=== PATIENT | female | born 1960 | race Caucasian/White ===

== ENCOUNTER → 2018-06-19 | Outpatient (CLI) | payer BC ==
[~2018-06-19] MED LIST: BIOT1CHW PO; CLR10 PO; FLAX1CAP11 PO; LEVO137T3 PO; LISI40TA PO; MULT1CAP3 PO
--- NOTE | 2018-06-20 07:56 | MAMMOGRAPHY REPORT ---
BILATERAL DIGITAL SCREENING MAMMOGRAM TOMOSYNTHESIS WITH CAD: 06/19/2018 CLINICAL HISTORY: Routine screening. Patient has no complaints. TECHNIQUE: The study was acquired using full field digital technology and interpreted from soft copy. Breast tomosynthesis in addition to standard 2D mammography was performed. Current study was also ev aluated with a Computer Aided Detection (CAD) system. COMPARISON: Comparison is made to exams dated: 06/22/2014 mammogram, 12/15/2013 mammogram, 06/18/2013 u ltrasound, 06/18/2013 mammogram, 06/09/2013 mammogram, and 12/15/2013 ultrasound - [facility]. BREAST COMPOSITION: There are scattered areas of fibroglandular density in both breasts. FINDINGS: No suspicious masses, calcifications, or areas of architectural distortion are noted in either breast . There has been no significant interval change compared to prior exams. IMPRESSION: ACR BI-RADS CATEGORY 1: NEGATIVE There is no mammographic evidence of malignancy. A 1 year screening mammogram is recommended.( 019) The patient will receive written notification of the results. Some breast cancers are not detected with mammography. A negative mammographic report should not rajat y biopsy if a clinically suggestive mass is present. Chelita Prince M.D. ah/:06/19/2018 12:38:19 Mobile Lounge Driver Or Operator: RT Tye(Mundo)(M), [facility] letter sent: Normal 1/2 BI-RADS Code: ACR BI-RADS Category 1: Negative
== END | disposition home or self-care (01) ==
LOC: C.MAMM 10:45
PROVIDERS: ATTEND Nurse Practitioner Family
DX: Z12.31 Encounter for screening mammogram for malignant neoplasm of breast (principal)

== ENCOUNTER 2019-08-09 13:07 | Observation (INO) ==
[2019-08-09] MEDS ORDERED: ONDANSETRON INJ 2 MG/ML 2 ML VIAL IV STA (13:43)
[2019-08-09] MEDS ORDERED: ASPIRIN CHEW 324 MG PO STA (13:43)
[2019-08-09] MEDS ORDERED: SODIUM CHLORIDE 0.9% 1000ML 1,000 ML IV SCH (13:45)
[2019-08-09 14:06] LABS: Basophils # (auto) 0.01 K/uL (0-0.2); Basophils % (auto) 0.2 %; Eosinophils # (auto) 0.01 K/uL (0-0.5); Eosinophils % (auto) 0.2 %; Hematocrit (blood only) 40.6 % (37-47); Hemoglobin 14.1 g/dL (12.0-16.0); Immature Granulocytes # (auto) 0.01 K/uL (0.00-0.02); Immature Granulocytes % (auto) 0.2 %; Lymphocytes # (auto) 0.98 K/uL (1.2-3.4); Lymphocytes % (auto) 15.5 %; Mean Corpuscular Hemoglobin 29.6 pg (25-34); Mean Corpuscular Hgb Conc 34.7 g/dL (32-36); Mean Corpuscular Volume 85.1 fL (80-100); Mean Platelet Volume 9.8 fL (7.4-10.4); Monocytes # (auto) 0.52 K/uL (0.11-0.59); Monocytes % (auto) 8.2 %; Neutrophils # (auto) 4.79 K/uL (1.4-6.5); Neutrophils % (auto) 75.7 %; Platelet Count 238 K/uL (130-400); RDW Coefficient of Variation 12.3 % (11.5-14.5); RDW Standard Deviation 37.8 fL (36.4-46.3); Red Blood Count 4.77 M/uL (4.2-5.4); White Blood Count 6.32 K/uL (4.8-10.8)
[2019-08-09 14:18] LABS: D Dimer 210 ug/L FEU (0-500); Partial Thromboplastin Ratio 1.1; Partial Thromboplastin Time 30.6 Seconds (21.0-31.0); Prothrombin Time 10.7 Seconds (9.0-12.0)
--- NOTE | 2019-08-09 14:25 | XRay Report ---
XR chest 1V portable CLINICAL HISTORY: 58 years-old Female presenting with Chest Pain. TECHNIQUE: Portable upright AP view of the chest was obtained. COMPARISON: None. FINDINGS: Top normal size of the cardiac silhouette. No focal opacity. No large effusion or pneumothorax. Degen erative changes of the thoracic spine. Upper abdomen normal. IMPRESSION: 1. No acute cardiopulmonary disease. Electronically signed by: Michael Saini M.D. 08/09/2019 2:24 PM
[2019-08-09 14:28] LABS: BUN Creatinine Ratio 11.7 (10-20); Blood Urea Nitrogen 12 mg/dl (7-18); Calcium 8.9 mg/dl (8.5-10.1); Carbon Dioxide 27 mmol/L (21-32); Chloride 96 mmol/L (98-107); Creatinine Clr Calc Pharmacy 65.7 ml/min; Est GFR (Non-African American) 58.7; Glucose 164 mg/dl (70-99); Lipase 100 U/L (73-393); Potassium 3.5 mmol/L (3.5-5.1); Sodium 133 mmol/L (136-145)
[2019-08-09 14:32] LABS: Troponin I < 0.015 ng/ml (0-0.045)
--- NOTE | 2019-08-09 17:18 | History & Physical Report ---
Date of Service August 09, 2019 Assessment & Plan (1) Chest pain: ED at OSH with neg workup No help with GI proph Trop neg x1, serials pending EKG WNL VSS Lipase is WNL, other LFTs not done--pending, t/c GB US if elevated Sx are more of a syndrome, lyme pending Low probablity of PE given VSS and no known risk factors, if sudden change in VS or SOB at rest or increase in chest pain--low threshold for CTA CBC, PRP WNL CXR neg for acute (2) HTN (hypertension): Pt states that she saw her PCP on 07/05 and her BP was elevated. Lisinopril was increased from 40mg to 50mg. She had f/u labs done on 08/01 and her K was increased, so the lisinopril was decreased back to 40mg and she was started on HCTZ. continue home meds (3) Hyperkalemia: Noted on prior labs per pt, now borderline low with HCTZ use Monitor (4) Hypothyroid: continue home meds (5) DVT prophylaxis: SCDs, ambulation History of Present Illness Primary Care Provider: MARLA Feldman 58 y/o F c/o chest pain. Pt states she has been very tired and weak for about the last week. She developed some SOB with exertion only and had some chest pain that was under her R breast. While they were on vacation in the [facility], pt developed L sided chest pain that went to her UE. She was seen in the ED there on Sunday when this started. She states she had a neg work up there. She was monitored in the ED and had labs done. No stress testing or ECHO. She was d/c'd from the ED to f/u with her PCP. Pt's PCP has been unavailable but she was seen by someone in the office on as her R sided chest pain was continuing "and I just feel shitty. There is no other way I can describe it." She was dx with a gastric issue and started on ranitidine, peptobismol, and BRAT diet. This has been no help. Today she notes R sided chest pain that is more under her breast. She continues to fatigued and weak. She has SOB with exertion, not at rest. She has had intermittent nausea, no emesis. She has loose stools with all PO intake. 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 Since this started, she has been mostly in the chair or in bed. Pt is outdoors a lot in her garden and around her home. They have 2 outdoor/indoor cats that are frequently noted with ticks. She denies any known bites or rashes. Pt states that she saw her PCP on 07/05 and her BP was elevated. Lisinopril was increased from 40mg to 50mg. She had f/u labs done on 08/01 and her K was increased, so the lisinopril was decreased back to 40mg and she was started on HCTZ. While sick, pt has been eating mostly bananas and oatmeal and continues to have loose stools. She has not had much of fatty or greasy/fried foods. Allergies Allergy/AdvReac Type Severity Reaction Status Date / Time No Known Allergies Allergy Mild Unverified 08/09/19 13:52 Home Medications Home Medications Medication Instructions Recorded Confirmed Type levothyroxine 137 mcg PO DAILY 90 Days #90 tab 05/06/16 08/09/19 History lisinopril 40 mg PO DAILY #0 tab 05/06/16 08/09/19 History loratadine 10 mg PO DAILY PRN #0 tab 05/06/16 08/09/19 History hydrochlorothiazide 25 mg PO DAILY 08/09/19 08/09/19 History ranitidine HCl [Zantac] 150 mg PO DAILY 08/09/19 08/09/19 History Past Med/Surg History Surgical History No pertinent past surgical history Family History Grandfather Myocardial infarction Other No pertinent family history Social History Preferred Language: Maori Feels Safe at Home: Yes Smoking Status: Former smoker Years Smoked: 3 ; Number of Years Since Quit: 35 ; Hx Alcohol Use: Yes (rare) Hx Substance Use: No Review of Systems Review of Systems: Pertinent positives and negatives reviewed in HPI--all others negative Physical Exam Constitutional: WD/WN, vitals as above Eyes: normal visual holly by confrontation and + anicteric sclerae Neck: normal visual inspection and trachea midline Respiratory: normal respiratory effort, lungs clear to auscultation Cardiovascular: Rate/Rhythm: regular rate and regular rhythm Gastrointestinal (Abdomen): Inspection/Auscultation: + abdomen distended Percussion/Palpation: abdomen soft; abdomen nontender Negative Benavidez's Musculoskeletal: Head/Neck/Chest: normocephalic and head atraumatic negative for edema, peripheral pulses intact Skin: no rashes, warm and dry Neurologic: awake; not confused Speech / Cognition: normal speech Psychiatric: A+Ox3, euthymic affect Results & Data Vital Signs (Past 12 Hours) Vital Signs Temp Pulse Resp BP Pulse Ox 08/09/19 15:02 73 19 119/79 08/09/19 14:30 72 14 08/09/19 14:00 73 19 08/09/19 13:40 74 13 08/09/19 13:12 36.6 C 107 H 24 121/80 97 Diagnostic Findings CXR: neg for acute ECG Rhythm: normal sinus Code Status & VTE Plan Code Status Full code VTE Prophylaxis Plan VTE Prophylaxis will be ordered: Yes PG Care Time/CCT Total # of Minutes Spent Total Time Spent with Patient: Total time spent is greater than 50% in coordination of care (as documented) at patient's floor/unit and/or counseling patient: (1) Chest pain Chest pain type: unspecified Qualified Code(s): R07.9 - Chest pain, unspecified
[2019-08-09] MEDS ORDERED: LORATADINE 10 MG TAB PO PRN (17:50)
[2019-08-09] MEDS ORDERED: MAGNESIUM HYDROXIDE SUSP 30 ML UDC PO PRN (17:50)
[2019-08-09] MEDS ORDERED: ACETAMINOPHEN 325 MG TAB PO PRN (17:50)
[2019-08-09] MEDS ORDERED: ONDANSETRON INJ 2 MG/ML 2 ML VIAL IV PRN (17:50)
--- NOTE | 2019-08-09 17:54 | Emergency Department Note ---
Entered by Jennifer Green acting as a scribe for History of Present Illness General Chief complaint: Shortness of Breath/Dyspnea Stated complaint: NAUSEA,SOB,WEAKNESS Time Seen by Provider: 08/09/19 13:38 History of Present Illness The patient is a 58 year old female who presents to the Emergency Room with complaints of shortness of breath that worsened today. She reports that she has been having discomfort in her central chest/epigastric region for several days. Pain is pressure in nature. No radiation of the pain. No shortness of breath. This morning, she felt much weaker than normal and complains of left arm tightness and weakness. She recently returned from a trip to the [facility] earlier this week. While she was in the earlier this week [facility], the patient experienced chest pain had to go to the emergency department in the [facility] where the patient states he did a cardiac work-up on her. The work-up was negative and the patient was discharged home. She is supposed to follow-up with her PCP was not able to as a PCP did not have any availability to see her this week. And reports no recent surgeries. She denies cough, coughing up blood, and vomiting. Home Medications Home Medications Medication Instructions Recorded Confirmed Type levothyroxine 137 mcg PO DAILY 90 Days #90 tab 05/06/16 08/09/19 History lisinopril 40 mg PO DAILY #0 tab 05/06/16 08/09/19 History loratadine 10 mg PO DAILY PRN #0 tab 05/06/16 08/09/19 History hydrochlorothiazide 25 mg PO DAILY 08/09/19 08/09/19 History ranitidine HCl [Zantac] 150 mg PO DAILY 08/09/19 08/09/19 History Allergies Allergy/AdvReac Type Severity Reaction Status Date / Time No Known Allergies Allergy Mild Unverified 08/09/19 13:52 Past Med/Surg History Surgical History No pertinent past surgical history Family History Grandfather Myocardial infarction Other No pertinent family history Social History Preferred Language: Tunisian Feels Safe at Home: Yes Smoking Status: Former smoker Years Smoked: 3 ; Number of Years Since Quit: 35 ; Hx Alcohol Use: Yes (rare) Hx Substance Use: No Review of Systems See HPI for pertinent positives & negatives. and A total of 10 systems reviewed and were otherwise negative Physical Exam Vital Signs Vital Signs - 24 hr 08/09/19 13:12 08/09/19 13:40 08/09/19 14:00 Temperature 36.6 C Temperature Source Oral Sepsis Recent Fever Within 48 Hours No Sepsis New/Unexplained Change in Mental Status No Sepsis Action Taken by Nursing No Action Required Pulse Rate 107 H 74 73 Pulse Rate from SpO2 Sensor Pulse Rhythm Regular Pulse Strength Normal Respiratory Rate 24 13 19 Respiratory Effort / Characteristics Non-Labored Spontaneous Respiratory Depth Normal Respiratory Pattern Regular Blood Pressure 121/80 Blood Pressure Mean 93 Blood Pressure Position Sitting Pulse Oximetry 97 Oxygen Delivery Method Room Air 08/09/19 14:30 08/09/19 14:56 08/09/19 15:02 Temperature Temperature Source Sepsis Recent Fever Within 48 Hours Sepsis New/Unexplained Change in Mental Status Sepsis Action Taken by Nursing Pulse Rate 72 73 Pulse Rate from SpO2 Sensor Pulse Rhythm Pulse Strength Respiratory Rate 14 19 Respiratory Effort / Characteristics Non-Labored Respiratory Depth Normal Respiratory Pattern Regular Blood Pressure 119/79 Blood Pressure Mean 92 Blood Pressure Position Pulse Oximetry Oxygen Delivery Method Room Air 08/09/19 15:30 08/09/19 16:00 08/09/19 16:30 Temperature Temperature Source Sepsis Recent Fever Within 48 Hours Sepsis New/Unexplained Change in Mental Status Sepsis Action Taken by Nursing Pulse Rate 62 57 L 63 Pulse Rate from SpO2 Sensor 63 57 L 63 Pulse Rhythm Pulse Strength Respiratory Rate 14 13 25 H Respiratory Effort / Characteristics Respiratory Depth Respiratory Pattern Blood Pressure 114/81 116/80 120/80 Blood Pressure Mean 92 92 93 Blood Pressure Position Pulse Oximetry 98 97 97 Oxygen Delivery Method 08/09/19 17:00 Temperature Temperature Source Sepsis Recent Fever Within 48 Hours Sepsis New/Unexplained Change in Mental Status Sepsis Action Taken by Nursing Pulse Rate 60 Pulse Rate from SpO2 Sensor 60 Pulse Rhythm Pulse Strength Respiratory Rate 14 Respiratory Effort / Characteristics Respiratory Depth Respiratory Pattern Blood Pressure 123/82 Blood Pressure Mean 95 Blood Pressure Position Pulse Oximetry 97 Oxygen Delivery Method GENERAL: She is oriented to person, place, and time. She appears well-developed and well-nourished. She does not appear distressed. HENT: Exam performed. Head: Normocephalic and atraumatic. Right Ear: External ear normal. No mastoid tenderness. Left Ear: External ear normal. No mastoid tenderness. Mouth/Throat: The oropharynx is clear and moist. No trismus in the jaw. No dental abscesses or uvula swelling. No oropharyngeal exudate or tonsillar abscesses. EYES: Conjunctivae and EOM are normal. Pupils are equal, round, and reactive to light. Right eye exhibits no discharge. Left eye exhibits no discharge. No scleral icterus. NECK: Normal range of motion. Neck supple. No JVD present. No spinous process tenderness present. No carotid bruit present. No rigidity. No tracheal deviation and normal range of motion present. No Brudzinski's sign and no Kernig's sign noted. CV: Normal rate, regular rhythm, normal heart sounds and intact distal pulses. There is no peripheral edema. Palpable radial pulses bue. PULM/CHEST: Effort normal and breath sounds normal. No respiratory distress. No stridor. She has no wheezes. She has no rales. Chest Wall: She exhibits no tenderness. ABD: The abdomen is soft. Bowel sounds are normal. She has no distension. No mass is present. There is no tenderness. There is no rebound, no guarding, no Benavidez's sign and no tenderness at McBurney's point. Rovsig negative MUSC/SKEL: Normal range of motion. There is no peripheral edema, tenderness or deformity. LYMPH: No cervical adenopathy. NEURO: She is alert and oriented to person, place, and time. She has normal strength. No cranial nerve deficit or sensory deficit. Coordination and gait normal. GCS eye subscore is 4. GCS verbal subscore is 5. GCS motor subscore is 6. cerbellar tests wnl. SKIN: Skin is warm and dry. She is not diaphoretic. PSYCH: She has a normal mood and affect. Her behavior is normal. Judgment and thought content normal. Course 1342: Past medical records reviewed. The patient was evaluated in room B07. A complete history and physical exam was performed. 1556: The patients vital signs are stable, and labs and imaging are within normal limits. She reports no chest pain actively. I had a discussion with the patient and her family, where I noted that this was her second trip to ER in last week for chest pain. I offered inpatient observation to further evaluate her symptoms, as opposed to discharging with Deltatroponin and following up with PCP. After discussion with her and her , they both agreed it would be best for her to remain in the hospital for further evaluation. 1610: I spoke to Madhavi Noel, [facility] hospitalist, who agreed to take over care of the patient. Administered Medications Discontinued Medications Aspirin (Aspirin) 324 mg PO NOW STA Stop: 08/09/19 13:44 Last Admin: 08/09/19 14:47 Dose: 324 mg Documented by: [id number] Sodium Chloride (Nss 1000ml) 1,000 mls @ 999 mls/hr IV .Q1H1M JOSE Stop: 08/09/19 14:45 Last Infusion: 08/09/19 17:35 Dose: 0 mls/hr Documented by: [id number] Admin: 08/09/19 15:07 Dose: 999 mls/hr Documented by: [id number] Ondansetron HCl (Zofran) 4 mg IV NOW STA Stop: 08/09/19 13:44 Last Admin: 08/09/19 14:48 Dose: 4 mg Documented by: [id number] Medical Decision Making Medical Records Attestation: I reviewed the patient's medical records. Home Medications Current Medication List: was personally reviewed by me Laboratory Data Attestation: I reviewed the patient's lab results. Result diagrams: 08/09/19 13:55 08/09/19 13:55 Lab Results 08/09/19 08/09/19 08/09/19 Range/Units 13:55 13:55 13:55 WBC 6.32 (4.8-10.8) K/uL RBC 4.77 (4.2-5.4) M/uL Hgb 14.1 (12.0-16.0) g/dL Hct 40.6 (37-47) % MCV 85.1 (80-100) fL MCH 29.6 (25-34) pg MCHC 34.7 (32-36) g/dL RDW Std Deviation 37.8 (36.4-46.3) fL RDW Coeff of Mervin 12.3 (11.5-14.5) % Plt Count 238 (130-400) K/uL MPV 9.8 (7.4-10.4) fL Immature Gran % (Auto) 0.2 % Neut % (Auto) 75.7 % Lymph % (Auto) 15.5 % Deuel % (Auto) 8.2 % Eos % (Auto) 0.2 % Baso % (Auto) 0.2 % Immature Gran # (Auto) 0.01 (0.00-0.02) K/uL Neut # (Auto) 4.79 (1.4-6.5) K/uL Lymph # (Auto) 0.98 L (1.2-3.4) K/uL Deuel # (Auto) 0.52 (0.11-0.59) K/uL Eos # (Auto) 0.01 (0-0.5) K/uL Baso # (Auto) 0.01 (0-0.2) K/uL PT 10.7 (9.0-12.0) Seconds INR 1.0 (0.9-1.1) APTT 30.6 (21.0-31.0) Seconds PTT Ratio 1.1 D-Dimer 210 (0-500) ug/L FEU Sodium 133 L (136-145) mmol/L Potassium 3.5 (3.5-5.1) mmol/L Chloride 96 L (98-107) mmol/L Carbon Dioxide 27 (21-32) mmol/L Anion Gap 10.0 (3-11) BUN 12 (7-18) mg/dl Creatinine 1.06 (0.6-1.2) mg/dl Est Cr Clr Drug Dosing 65.7 ml/min Est GFR ( Amer) 68.0 Est GFR (Non-Af Amer) 58.7 BUN/Creatinine Ratio 11.7 (10-20) Glucose 164 H (70-99) mg/dl Calcium 8.9 (8.5-10.1) mg/dl Troponin I < 0.015 (0-0.045) ng/ml Lipase 100 (73-393) U/L Imaging Data Radiologist's Impression: Radiology results as stated below per my review and the radiologist's interpretation: XR chest 1V portable CLINICAL HISTORY: 58 years-old Female presenting with Chest Pain. TECHNIQUE: Portable upright AP view of the chest was obtained. COMPARISON: None. FINDINGS: Top normal size of the cardiac silhouette. No focal opacity. No large effusion or pneumothorax. Degenerative changes of the thoracic spine. Upper abdomen n ormal. IMPRESSION: 1. No acute cardiopulmonary disease. Electronically signed by: Michael Saini M.D. 08/09/2019 2:24 PM ECG Data Attestation: I personally reviewed and interpreted this ECG as follows: Indication: SOB/dyspnea Rate (beats per minute): 78 Findings: + other (LA, QRS, and QTC intervals within normal limits. Inversion in lead 3 only); no ST depression and no ST elevation Blood Pressure Blood Pressure Findings: Normal blood pressure Blood Pressure Disposition: did not require urgent referral MDM Narrative The patients vital signs are stable, and labs and imaging are within normal limits. She reports no chest pain actively. I had a discussion with the patient and her family, where I noted that this was her second trip to ER in last week for chest pain. I offered inpatient observation to further evaluate her symptoms, as opposed to discharging with Deltatroponin and following up with PCP. After discussion with her and her , they both agreed it would be best for her to remain in the hospital for further evaluation. Impression & Plan Chest pain Discharge Plan Visit Data Chief Complaint: Shortness of Breath/Dyspnea Stated Complaint: NAUSEA,SOB,WEAKNESS ED Provider: Lei Quick Discharge Problem: Chest pain Discharge Problem: Chest pain Qualifiers: Chest pain type: unspecified Qualified Code(s): R07.9 - Chest pain, unspecified The scribe's documentation has been prepared under my direction and personally reviewed by me in its entirety. I confirm that the note above accurately reflects all work, treatment, procedures, and medical decision making performed by me.
[2019-08-09 17:56] LABS: Lyme Ab IgG w/WB Rflx Negative (Negative); Lyme Ab IgM w/WB Rflx Negative (Negative)
[2019-08-09 18:06] LABS: Alanine Aminotransferase 16 U/L (12-78); Albumin Level 3.4 gm/dl (3.4-5.0); Alkaline Phosphatase 64 U/L (45-117); Aspartate Aminotransferase 11 U/L (15-37); Bilirubin Direct 0.2 mg/dl (0-0.2); Bilirubin,Total 0.9 mg/dl (0.2-1); Troponin I < 0.015 ng/ml (0-0.045)
[2019-08-10] MEDS ORDERED: LEVOTHYROXINE SODIUM 137 MCG TABLET PO SCH (06:30)
[2019-08-10] MEDS ORDERED: ONDANSETRON INJ 2 MG/ML 2 ML VIAL IV STA (08:51)
[2019-08-10] MEDS ORDERED: PANTOprazole 40 MG TAB PO STA (08:51)
[2019-08-10] MEDS ORDERED: hydroCHLOROthiazide 25 MG TAB PO SCH (09:00)
[2019-08-10] MEDS ORDERED: LISINOPRIL 40 MG TAB PO SCH (09:00)
--- NOTE | 2019-08-10 15:27 | Discharge Summary ---
Date of Service August 10, 2019 Admission HPI Per Admitting Provider 58 y/o F c/o chest pain. Pt states she has been very tired and weak for about the last week. She developed some SOB with exertion only and had some chest pain that was under her R breast. While they were on vacation in the [facility], pt developed L sided chest pain that went to her UE. She was seen in the ED there on Sunday when this started. She states she had a neg work up there. She was monitored in the ED and had labs done. No stress testing or ECHO. She was d/c'd from the ED to f/u with her PCP. Pt's PCP has been unavailable but she was seen by someone in the office on as her R sided chest pain was continuing "and I just feel shitty. There is no other way I can describe it." She was dx with a gastric issue and started on ranitidine, peptobismol, and BRAT diet. This has been no help. Today she notes R sided chest pain that is more under her breast. She continues to fatigued and weak. She has SOB with exertion, not at rest. She has had intermittent nausea, no emesis. She has loose stools with all PO intake. 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 Since this started, she has been mostly in the chair or in bed. Pt is outdoors a lot in her garden and around her home. They have 2 outdoor/indoor cats that are frequently noted with ticks. She denies any known bites or rashes. Pt states that she saw her PCP on 07/05 and her BP was elevated. Lisinopril was increased from 40mg to 50mg. She had f/u labs done on 08/01 and her K was increased, so the lisinopril was decreased back to 40mg and she was started on HCTZ. While sick, pt has been eating mostly bananas and oatmeal and continues to have loose stools. She has not had much of fatty or greasy/fried foods. Admission Exam Per Admitting Provider Constitutional: WD/WN, vitals as above Eyes: normal visual holly by confrontation and + anicteric sclerae Neck: normal visual inspection and trachea midline Respiratory: normal respiratory effort, lungs clear to auscultation Cardiovascular: Rate/Rhythm: regular rate and regular rhythm Gastrointestinal (Abdomen): Inspection/Auscultation: + abdomen distended Percussion/Palpation: abdomen soft; abdomen nontender Negative Benavidez's Musculoskeletal: Head/Neck/Chest: normocephalic and head atraumatic negative for edema, peripheral pulses intact Skin: no rashes, warm and dry Neurologic: awake; not confused Speech / Cognition: normal speech Psychiatric: A+Ox3, euthymic affect Principal Diagnosis Gastritis Discharge Exam Constitutional WD/WN, vitals as above Eyes PERRL, conjunctivae normal, anicteric sclerae ENMT external ear and nose normal, oropharynx normal Neck trachea midline, no thyromegaly Respiratory normal respiratory effort, lungs clear to auscultation Cardiovascular RRR, no murmur, no edema Gastrointestinal (Abdomen) normal bowel sounds, soft, nontender, no hepatosplenomegaly Musculoskeletal no cyanosis or clubbing, extremities motor strength 5/5 Skin no rashes, warm and dry Neurologic PERRL, EOMI, accommodation nl, no face palsy, no dysarthria Psychiatric A+Ox3, euthymic affect Discharge Data Allergies Allergy/AdvReac Type Severity Reaction Status Date / Time No Known Allergies Allergy Mild Unverified 08/09/19 13:52 Consultations 08/09/19 15:57 ED Decision to Admit [place] [phone] XRay Report Patient: MARIN العراقي Date: 08/09/19 MR#: [id number]: [address] [facility] Acct ID:[id number]: Date: 1960[facility] Zip: [place] [address] Age: 58Location: ED Sex: F Room/Bed: Att Phy:Diagnosis: NAUSEA,SOB,WEAKNESS Naomy Phy: Daiana Palomo CRNPServemerson Date: 08/09/19 Fam Phy:Interpreting Phy: Michael Saini MD Admit Phy: Ordering Phy: Lei Quick M.D. cc: ~ XR chest 1V portable CLINICAL HISTORY: 58 years-old Female presenting with Chest Pain. TECHNIQUE: Portable upright AP view of the chest was obtained. COMPARISON: None. FINDINGS: Top normal size of the cardiac silhouette. No focal opacity. No large effusion or pneumothorax. Degenerative changes of the thoracic spine. Upper abdomen normal. IMPRESSION: 1. No acute cardiopulmonary disease. Electronically signed by: Michael Saini M.D. 08/09/2019 2:24 PM Hospital Course (1) HTN (hypertension): 58 yo female with a H/o HTN, hypothyroid presenting with epigastric pain, fatigue and hotflashes. The patient was admitted and worked up for atypical chest paintesting was unremarkable for cardiac causes of symptoms. Her working diagnosis is gastritis vs gastric reflux vs viral gastroenteritis. Gastritis vs GERD vs viral gastroenteritis Sent home with the following prescriptionsomeprazole in the a.m., Zantac in the p.m. Lyme testing was negative, although may not of seroconverted No abnormality suggesting other vector borne illnesses ACS workuprisk factors includes hypertension and obesity Trops negative x3 EKG NSR with T wave abnormality in the inferior leads, no significant changes CXR negative (2) Hyperkalemia: (3) DVT prophylaxis: (4) Hypothyroid: (5) Chest pain: Total Time Total Time Spent Total Time Spent (In Minutes): greater than 30 minutes Total Time Includes: Examination of the Patient, Discharge Planning, Medication Reconciliation and Communication With Other Providers Discharge Plan Discharge Items Patient Disposition: Home - Self-Care Reason For Visit: CHEST PAIN Discharge Diagnosis: gastritis Condition on Discharge: Good Activity: Resume your previous activity Non-emergency contact: Primary Care Provider Call non-emergency contact if: you have any medication questions Follow-up/Referrals: Daiana Palomo CRNP [Primary Care Provider] - Diet: Heart Healthy Addtl Attending Provider Instructions: You were admitted to the hospital with concerns for chest pain. All the testing performed in the hospital were unremarkable for cardiac causes Your symptoms maybe secondary to GI causes such as gastritis, gastric reflux and gastroenteritis We recommend the following: #1 Please take Omeprazole 40 mg in the morning and Zantac 150 mg in the evening, for the next 2 weeks #2 Follow up with your primary care doctor in the next 1-2 weeks Pending Studies at Discharge: No Stand-Alone Forms: My [facility] Medications and DC Order Prescriptions: New omeprazole 40 mg capsule,delayed release(DR/EC) 40 mg PO DAILY 30 Days Qty: 30 RF: 0 Continued levothyroxine 137 mcg Tablet 137 mcg PO DAILY 90 Days Qty: 90 RF: 3 lisinopril 40 mg Tablet 40 mg PO DAILY Qty: 0 RF: 0 loratadine 10 mg Tablet 10 mg PO DAILY PRN (Reason: Allergic Symptoms) Qty: 0 RF: 0 ranitidine HCl [Zantac] 150 mg Tablet 150 mg PO DAILY RF: 0 hydrochlorothiazide 25 mg tablet 25 mg PO DAILY RF: 0 Discharge Orders: Discharge Order (Routine); Ordered 08/10/19 Ordered By: Saroj Schilling/Other Patient Handouts: Gastritis Admission Data Admit Date/Time: 08/09/19 17:04 Attending Provider: Madhavi Noel Admit Provider: Madhavi Noel Primary Care Provider: Daiana Palomo Other Providers: Madhavi Noel Other Interventions: Discharge Summary Assessment (RN) Last Done: 08/10/19 15:14 Supervising Physician Co-Signing Physician Notes I saw the patient with the resident physician and confirmed gaona portion of the history and physical exam. Agree with the impression and plan as noted above. She is seated in bed with her at bedside. She has no specific complaints today other than feeling "shitty." She has been up ambulating the hallways without any increase in her symptoms. She is tolerating food and fluid without difficulty. Upon examination, she is alert and oriented. No acute distress. Heart regular rate and rhythms. Lungs clear throughout with nonlabored respirations. Abdomen soft and nontender. There is no CVA tenderness. Extremities without edema. The patient CBC is unremarkable. Troponin negative x3. BMP unremarkable except for very mild hyponatremia of 133 (although this would correct to low normal with respect to her elevated glucose of 164 in parentheses). Chest x-ray is unremarkable. Lyme Erika was negative. TSH was normal. Nonspecific complaints with nonfocal examination, most likely consistent with viral syndrome. History not suggestive of cardiac etiology and troponins definitively negative. Agree with discharge today and outpatient follow-up. Resident Activity Tracking Resident Involvement: Resident Care Provided Care Provided: Adult [facility]
== END 2019-08-10 15:50 | disposition home or self-care (01) ==
LOC: ED 13:07 → 2N 13:07 → SUATTDRO 17:04 → 2N 17:55

== ENCOUNTER 2022-06-07 14:12 | Inpatient (IN) ==
[2022-06-07 15:16] LABS: Basophils # (auto) 0.03 K/uL (0-0.2); Basophils % (auto) 0.5 %; Eosinophils # (auto) 0.01 K/uL (0-0.50); Eosinophils % (auto) 0.2 %; Hematocrit (blood only) 35.4 % (34.1-44.9); Hemoglobin 13.1 g/dl (12.0-16.0); Immature Granulocytes # (auto) 0.03 K/uL (0.00-0.02); Immature Granulocytes % (auto) 0.5 %; Lymphocytes # (auto) 0.81 K/uL (1.2-3.4); Lymphocytes % (auto) 14.5 %; Mean Corpuscular Volume 78.5 fL (80.0-100.0); Mean Platelet Volume 9.5 fL (9.4-12.3); Monocytes # (auto) 0.71 K/uL (0.24-0.82); Monocytes % (auto) 12.7 %; Neutrophils # (auto) 3.99 K/uL (1.4-6.5); Neutrophils % (auto) 71.6 %; Platelet Count 244 K/uL (130-400); RDW Coefficient of Variation 12.1 % (11.5-14.5); RDW Standard Deviation 34.2 fL (36.4-46.3); Red Blood Count 4.51 M/uL (3.93-5.22); White Blood Count 5.58 K/ul (4.8-10.8)
[2022-06-07 15:51] LABS: Albumin Globulin Ratio 1.3 (0.9-2); BUN Creatinine Ratio 10.8 (10-20); Bilirubin,Total 1.4 mg/dl (0.2-1.0); Calcium 8.8 mg/dl (8.5-10.1); Creatinine Clr Calc Pharmacy 76.4 ml/min; Est GFR (Non-African American) 67.3 ml/min; Potassium 3.1 mmol/L (3.5-5.1)
[2022-06-07] MEDS ORDERED: SODIUM CHLORIDE 0.9% 1000ML 2,000 ML IV ONE (16:00)
[2022-06-07] MEDS ORDERED: MAGNESIUM SULFATE / D5W 1 GM/100 ML BAG IV STA (16:01)
--- NOTE | 2022-06-07 16:07 | Emergency Department Note ---
Impression & Plan Hyponatremia, HTN (hypertension), Gastritis ED Provider Note NAME: MARIN العراقي AGE: 61 SEX: F : 1960 ARRIVES VIA: Walk-In INFORMANT: Patient ED PROVIDER(S): Nathaniel Mcfarland DO CHIEF COMPLAINT: weakness HPI: Patient is a 61-year-old female who presents the ER for epigastric fullness/discomfort which has been present since last Sunday. Got worse this past Sunday and now has improved. She notes that she has not really been eating much and has maybe started drinking less. She denies any headache or change in vision. No chest pain or shortness of breath. No dysuria, urgency, or frequency. No other exacerbating or remitting factors. She just feels weak all over. No dizziness or lightheadedness. She went to her PCP and was referred in after having blood work showing a low sodium. No focal weakness or numbness anywhere ROS: See above HPI for pertinent positives & negatives. A total of 10 systems reviewed and were otherwise negative. PAST MEDICAL HISTORY:See Below PAST SURGICAL HISTORY:See Below FAMILY HISTORY:See Below SOCIAL HISTORY:See Below HOME MEDICATIONS:See Below ALLERGIES:See Below VITALS:See Below PHYSICAL EXAMINATION: GENERAL: Sitting up in bed, alert, well appearing, well nourished, no distress, non-toxic EYE EXAM: normal conjunctiva. OROPHARYNX: no exudate, no erythema, lips, buccal mucosa, and tongue normal and mucous membranes are moist NECK: supple, no nuchal rigidity, no adenopathy, non-tender LUNGS: Clear to auscultation. Normal chest wall mechanics HEART: no murmurs, S1 normal and S2 normal ABDOMEN: abdomen soft, non-tender, normo-active bowel sounds, no masses, no rebound or guarding. UPPER EXTREMITIES: upper extremities are grossly normal. LOWER EXTREMITIES: No pitting edema. NEURO EXAM: Normal sensorium, cranial nerves II-XII grossly intact, normal speech, no gross weakness of arms, no gross weakness of legs. MEDICAL DECISION MAKING: Patient is a 61-year-old female who presents the ER for the above-stated complaint. IV was established blood work was obtained. Labs show no significant leukocytosis or anemia. BMP without significant hyponatremia at 114. Significant hypokalemia at 3.1. T bili at 1.4. LFTs and lipase are unremarkable. UA was contaminated. COVID was negative. Patient was given 2 L of IV fluids as well as IV potassium and magnesium. She was updated bedside discussed with hospitalist admitted for further work-up of her hyponatremia. Triage Nursing notes reviewed. Limited review of prior medical records performed Vital Signs: reviewed and remarkable for no significant abnormalities Differential diagnosis: Infection, dehydration, metabolic abnormality, hypo/hyperglycemia, electrolyte disturbance, anemia, hypoxia, cardiac sources, intracerebral event, toxicologic, neurologic, as well as other pathologies. ER treatment provided: See below Diagnostics interpreted by me: ECG: none Cardiac Monitoring: An order was placed for continuous cardiac monitoring. The monitor shows a rate of 60 with sinus rhythm. Laboratory studies: As stated above and show below. Imaging studies: See below Consultation(s): Discussed with hospitalist for further evaluation Dr. Lai Procedures: none Past Med/Surg History Surgical History No pertinent past surgical history Family History Grandfather Myocardial infarction Other No pertinent family history Social History Smoking Status: Former smoker Years Smoked: 3; Number of Years Since Quit: 35; Hx Alcohol Use: Yes Hx Substance Use: No Preferred Language: Cape Verdean Communication Ability: Effective Inpatient Services Director Required: No Beliefs That Will Affect Care: Worship Worship Beliefs: Jehovah Witness Current Living Situation: Family Other Information That Helps Us Care for You: Yes (No blood) Feels Safe at Home: Yes Safety Concerns: Feels Safe At This Time Assistive Devices: Glasses Allergies Allergies Allergy/AdvReac Type Severity Reaction Status Date / Time No Known Allergies Allergy Mild Unverified 08/09/19 13:52 Home Meds Home Medications Medication Instructions Recorded Confirmed levothyroxine 137 mcg tablet 137 mcg PO DAILY 90 days #90 tabs 05/06/16 08/09/19 lisinopril 40 mg tablet 40 mg PO DAILY #0 tabs 05/06/16 08/09/19 loratadine 10 mg tablet 10 mg PO DAILY PRN Allergic 05/06/16 08/09/19 Symptoms #0 tabs hydrochlorothiazide 25 mg tablet 25 mg PO DAILY 08/09/19 08/09/19 ranitidine HCl 150 mg tablet 150 mg PO DAILY 08/09/19 08/09/19 (Zantac) Results & Data (ED) Vital Signs Vital Signs - 24 hr 06/07/22 14:20 06/07/22 16:30 Temperature 36.9 C Temperature Source Temporal Artery Scan Pulse Rate 66 Respiratory Rate 16 Respiratory Effort / Characteristics Non-Labored Respiratory Depth Normal Blood Pressure 124/85 Blood Pressure Mean 98 Pulse Oximetry 97 Oxygen Delivery Method Room Air Room Air Sepsis Recent Fever Within 48 Hours No Sepsis New/Unexplained Change in Mental Status No Sepsis Action Taken by Nursing No Action Required Laboratory Data Result diagrams: 06/07/22 15:05 06/07/22 15:05 Lab Results 06/07/22 06/07/22 06/07/22 Range/Units 15:05 15:05 15:05 WBC 5.58 (4.8-10.8) K/ul RBC 4.51 (3.93-5.22) M/uL Hgb 13.1 (12.0-16.0) g/dl Hct 35.4 (34.1-44.9) % MCV 78.5 L (80.0-100.0) fL MCH 29.0 (25.0-34.0) pg MCHC 37.0 H (32.0-36.0) g/dL RDW Std Deviation 34.2 L (36.4-46.3) fL RDW Coeff of Mervin 12.1 (11.5-14.5) % Plt Count 244 (130-400) K/uL MPV 9.5 (9.4-12.3) fL Immature Gran % (Auto) 0.5 % Neut % (Auto) 71.6 % Lymph % (Auto) 14.5 % Love % (Auto) 12.7 % Eos % (Auto) 0.2 % Baso % (Auto) 0.5 % Neut # (Auto) 3.99 (1.4-6.5) K/uL Lymph # (Auto) 0.81 L (1.2-3.4) K/uL Love # (Auto) 0.71 (0.24-0.82) K/uL Eos # (Auto) 0.01 (0-0.50) K/uL Baso # (Auto) 0.03 (0-0.2) K/uL Immature Gran # (Auto) 0.03 H (0.00-0.02) K/uL Sodium 114 L* (136-145) mmol/L Potassium 3.1 L D (3.5-5.1) mmol/L Chloride 77 L (98-107) mmol/L Carbon Dioxide 28 (21-32) mmol/L Anion Gap 9 (3-11) BUN 10 (6-23) mg/dl Creatinine 0.93 (0.6-1.2) mg/dl Est Cr Clr Drug Dosing 76.4 ml/min Est GFR ( Amer) 78.0 ml/min Est GFR (Non-Af Amer) 67.3 ml/min BUN/Creatinine Ratio 10.8 (10-20) Glucose 113 H (70-99(Fasting)) mg/dl Calcium 8.8 (8.5-10.1) mg/dl Magnesium 1.8 (1.7-2.4) mg/dl Total Bilirubin 1.4 H (0.2-1.0) mg/dl AST 37 (13-39) U/L ALT 24 (7-52) U/L Alkaline Phosphatase 60 (34-104) U/L Total Protein 7.0 (6.0-8.3) gm/dl Albumin 4.0 (3.4-5.0) gm/dl Globulin 3.0 (2.5-4.0) gm/dl Albumin/Globulin Ratio 1.3 (0.9-2) Lipase 28 (11-82) U/L Urine Color Urine Appearance (Clear) Urine pH (4.5-7.5) Ur Specific Eugene (1.000-1.030) Urine Protein (Negative) Urine Glucose (UA) (Negative) Urine Ketones (Negative) Urine Blood (Negative) Urine Nitrite (Negative) Urine Bilirubin (Negative) Urine Urobilinogen (Negative) Ur Leukocyte Esterase (Negative) Urine WBC (Auto) (0-5) /hpf Urine RBC (Auto) (0-4) /hpf U Hyaline Cast (Auto) (0-5) /lpf U Epithel Cells (Auto) (0-5) /lpf Urine Bacteria (Auto) (Negative) SARS-CoV-2, RNA, NAAT (NEGATIVE) 07/13/22 07/13/22 Range/Units 16:23 16:28 WBC (4.8-10.8) K/ul RBC (3.93-5.22) M/uL Hgb (12.0-16.0) g/dl Hct (34.1-44.9) % MCV (80.0-100.0) fL MCH (25.0-34.0) pg MCHC (32.0-36.0) g/dL RDW Std Deviation (36.4-46.3) fL RDW Coeff of Mervin (11.5-14.5) % Plt Count (130-400) K/uL MPV (9.4-12.3) fL Immature Gran % (Auto) % Neut % (Auto) % Lymph % (Auto) % Love % (Auto) % Eos % (Auto) % Baso % (Auto) % Neut # (Auto) (1.4-6.5) K/uL Lymph # (Auto) (1.2-3.4) K/uL Love # (Auto) (0.24-0.82) K/uL Eos # (Auto) (0-0.50) K/uL Baso # (Auto) (0-0.2) K/uL Immature Gran # (Auto) (0.00-0.02) K/uL Sodium (136-145) mmol/L Potassium (3.5-5.1) mmol/L Chloride (98-107) mmol/L Carbon Dioxide (21-32) mmol/L Anion Gap (3-11) BUN (6-23) mg/dl Creatinine (0.6-1.2) mg/dl Est Cr Clr Drug Dosing ml/min Est GFR ( Amer) ml/min Est GFR (Non-Af Amer) ml/min BUN/Creatinine Ratio (10-20) Glucose (70-99(Fasting)) mg/dl Calcium (8.5-10.1) mg/dl Magnesium (1.7-2.4) mg/dl Total Bilirubin (0.2-1.0) mg/dl AST (13-39) U/L ALT (7-52) U/L Alkaline Phosphatase (34-104) U/L Total Protein (6.0-8.3) gm/dl Albumin (3.4-5.0) gm/dl Globulin (2.5-4.0) gm/dl Albumin/Globulin Ratio (0.9-2) Lipase (11-82) U/L Urine Color Yellow Urine Appearance Clear (Clear) Urine pH 7.0 (4.5-7.5) Ur Specific Eugene 1.004 (1.000-1.030) Urine Protein Negative (Negative) Urine Glucose (UA) Negative (Negative) Urine Ketones Negative (Negative) Urine Blood Trace H (Negative) Urine Nitrite Negative (Negative) Urine Bilirubin Negative (Negative) Urine Urobilinogen Negative (Negative) Ur Leukocyte Esterase Negative (Negative) Urine WBC (Auto) 0 (0-5) /hpf Urine RBC (Auto) 0-4 (0-4) /hpf U Hyaline Cast (Auto) 0 (0-5) /lpf U Epithel Cells (Auto) >30 H (0-5) /lpf Urine Bacteria (Auto) Negative (Negative) SARS-CoV-2, RNA, NAAT NEGATIVE (NEGATIVE) Administered Medications Sodium Chloride (Nss 1000ml) 1,000 mls @ 100 mls/hr IV .Q10H JOSE Stop: 07/07/22 19:10 Last Admin: 06/07/22 19:49 Dose: 100 mls/hr Documented By: PW Discontinued Medications Sodium Chloride (Nss 1000ml) 2,000 mls @ 999 mls/hr IV .Q2H1M ONE Stop: 06/07/22 18:00 Last Infusion: 06/07/22 18:37 Dose: 0 mls/hr Documented By: Admin: 06/07/22 16:19 Dose: 999 mls/hr Documented By: FRANCISCA Potassium Chloride (K Dioni / Wtr) 10 meq in 100 mls @ 100 mls/hr IV Q1H JOSE; Protocol Stop: 06/07/22 17:59 Last Infusion: 06/07/22 18:37 Dose: 0 mls/hr Documented By: Admin: 06/07/22 17:25 Dose: 100 mls/hr Documented By: Infusion: 06/07/22 17:20 Dose: 100 mls/hr Documented By: Admin: 06/07/22 16:20 Dose: 100 mls/hr Documented By: FRANCISCA Magnesium Sulfate/Dextrose (Magnesium Sulfate / D5w) 1 gm in 100 mls @ 100 mls/hr IV NOW STA Stop: 06/07/22 17:00 Last Infusion: 06/07/22 17:21 Dose: 0 mls/hr Documented By: Admin: 06/07/22 16:20 Dose: 100 mls/hr Documented By: FRANCISCA Discharge Plan Visit Data Chief Complaint: Referred by Doctor Stated Complaint: SODIUM LEVEL LOW 116, SENT BY DR SOLIZ ED Provider: Nathaniel Mcfarland Discharge Problem: Hyponatremia, HTN (hypertension), Gastritis Patient Disposition: Admitted As Inpatient Discharge Instructions Interventions: ED Discharge Assessment Last Done: 06/07/22 18:45
[2022-06-07] MEDS: POTASSIUM CHLORIDE / WTR 10 MEQ/100 ML PLCT IV SCH ×2 (16:20→17:25)
[2022-06-07 17:31] LABS: Appearance Urine Clear (Clear); Bacteria Urine Automated Negative (Negative); Bilirubin Urine Negative (Negative); Blood Urine Trace (Negative); Cast Urine Automated 0 /lpf (0-5); Color Urine Yellow; Epithelial Cell Urine Auto >30 /lpf (0-5); Glucose Urine UA Negative (Negative); Ketones Urine Negative (Negative); Leukocyte Esterase Urine Negative (Negative); Nitrite Urine Negative (Negative); Protein Urine Negative (Negative); RBC Urine Automated 0-4 /hpf (0-4); Specific Gravity Urine 1.004 (1.000-1.030); Urobilinogen Urine Negative (Negative); WBC Urine Automated 0 /hpf (0-5)
--- NOTE | 2022-06-07 17:31 | History & Physical Report ---
Date of Service June 07, 2022 Assessment & Plan (1) Hyponatremia: Plan: Consideration to dehydration superimposed on medication effect (HCTZ) Admit to monitored bed Patient being slowly hydrated with normal saline, will recheck sodium and adjust as appropriate Check serum and urine osms Hold olmesartan and hydrochlorothiazide for now (2) Gastritis: Plan: Continue oral pantoprazole start bland diet, can advance as tolerated As needed Zofran (3) HTN (hypertension): Plan: Monitor off medications for now, BP currently 124/85 (4) Hypothyroid: Plan: continue levothyroxine History of Present Illness Chief Complaint: abnormal labs Primary Care Provider: MARLA Feldman This is a 61-year-old female with past medical history of hypertension that presents today after being found to have abnormal labs. Patient is with her and both are good historians. Patient tells me that she started with some abdominal pain and dyspepsia late last week. She had diminished p.o. intake secondary to discomfort. She went to see her primary care physician and was given famotidine after being told she had gastritis. Patient continue to drink fluids but had very little solid p.o. intake. She continue taking her usual medications which included hydrochlorothiazide and olmesartan. Symptoms did not resolve and she returned to her physician today. At this point she was given pantoprazole and an x-ray was performed which was essentially unremarkable. However, laboratory work showed a sodium of 116. Patient was contacted and told to present to the emergency room. In the ER, labs were repeated and her sodium was 114. Patient was started on normal saline and referred to us for admission. At the time of my evaluation, patient tells me that her appetite has improved and that she feels that she can tolerate solid food again. She denies any neurological symptoms including tremor or confusion. She has had no lightheadedness, dizziness, or difficulty ambulating. Allergies Allergy/AdvReac Type Severity Reaction Status Date / Time No Known Allergies Allergy Mild Unverified 08/09/19 13:52 Home Medications Medication Instructions Recorded Confirmed Type levothyroxine 137 mcg tablet 137 mcg PO DAILY 90 days #90 tabs 05/06/16 08/09/19 History lisinopril 40 mg tablet 40 mg PO DAILY #0 tabs 05/06/16 08/09/19 History loratadine 10 mg tablet 10 mg PO DAILY PRN Allergic 05/06/16 08/09/19 History Symptoms #0 tabs hydrochlorothiazide 25 mg tablet 25 mg PO DAILY 08/09/19 08/09/19 History ranitidine HCl 150 mg tablet 150 mg PO DAILY 08/09/19 08/09/19 History (Zantac) Past Med/Surg History Surgical History No pertinent past surgical history Family History Grandfather Myocardial infarction Other No pertinent family history Social History Smoking Status: Never smoker Years Smoked: 3; Number of Years Since Quit: 35; Hx Alcohol Use: Yes (rare) Hx Substance Use: No Preferred Language: Vietnamese Communication Ability: Effective 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 Beliefs That Will Affect Care: Hinduism Hinduism Beliefs: Jehovah Witness Current Living Situation: Spouse Feels Safe at Home: Yes Assistive Devices: None Review of Systems Constitutional: no fever, no chills, no weakness, no weight loss and no weight gain Eyes: as per Subjective / HPI Respiratory: no cough, no chest congestion, no dyspnea and no dyspnea on exertion Cardiovascular: no chest pain, no orthopnea, no palpitations, no lightheadedness and no edema Gastrointestinal: + abdominal pain and + nausea; no vomiting, no constipation and no diarrhea/loose stools Genitourinary: no dysuria, no difficulty urinating, no urinary frequency, no urinary hesitancy, no urinary urgency and no flank pain Musculoskeletal: no back pain, no neck pain, no joint pain, no stiffness and no myalgia Integumentary: no rash Neurologic: no gait abnormality, no unsteadiness, no falls and no generalized weakness Physical Exam Constitutional: cooperative; no acute distress Neck: trachea midline, no thyromegaly Respiratory: normal respiratory effort Auscultation: lungs clear to auscultation bilaterally; no crackles, no rales, no rhonchi and no wheezes Cardiovascular: Rate/Rhythm: regular rate and regular rhythm Heart Sounds: normal S1 and normal S2 Gastrointestinal (Abdomen): Inspection/Auscultation: abdomen normal to inspection Percussion/Palpation: abdomen soft; abdomen nontender, no gua rding, abdomen not rigid and no hepatosplenomegaly Skin: no rashes, warm and dry Results & Data Results & Data ([facility]) Vital Signs (Past 12 Hours) Vital Signs Temp Pulse Resp BP Pulse Ox O2 Del Method 06/07/22 16:30 Room Air 06/07/22 14:20 36.9 C 66 16 124/85 97 Room Air Laboratory Results Laboratory Results WBC 5.58 K/ul (4.8-10.8) 06/07/22 15:05 RBC 4.51 M/uL (3.93-5.22) 06/07/22 15:05 Hgb 13.1 g/dl (12.0-16.0) 06/07/22 15:05 Hct 35.4 % (34.1-44.9) 06/07/22 15:05 MCV 78.5 fL (80.0-100.0) L 06/07/22 15:05 MCH 29.0 pg (25.0-34.0) 06/07/22 15:05 MCHC 37.0 g/dL (32.0-36.0) H 06/07/22 15:05 RDW Std Deviation 34.2 fL (36.4-46.3) L 06/07/22 15:05 RDW Coeff of Mervin 12.1 % (11.5-14.5) 06/07/22 15:05 Plt Count 244 K/uL (130-400) 06/07/22 15:05 MPV 9.5 fL (9.4-12.3) 06/07/22 15:05 Immature Gran % (Auto) 0.5 % 06/07/22 15:05 Neut % (Auto) 71.6 % 06/07/22 15:05 Lymph % (Auto) 14.5 % 06/07/22 15:05 [place] % (Auto) 12.7 % 06/07/22 15:05 Eos % (Auto) 0.2 % 06/07/22 15:05 Baso % (Auto) 0.5 % 06/07/22 15:05 Neut # (Auto) 3.99 K/uL (1.4-6.5) 06/07/22 15:05 Lymph # (Auto) 0.81 K/uL (1.2-3.4) L 06/07/22 15:05 Rapides # (Auto) 0.71 K/uL (0.24-0.82) 06/07/22 15:05 Eos # (Auto) 0.01 K/uL (0-0.50) 06/07/22 15:05 Baso # (Auto) 0.03 K/uL (0-0.2) 06/07/22 15:05 Immature Gran # (Auto) 0.03 K/uL (0.00-0.02) H 06/07/22 15:05 Sodium 114 mmol/L (136-145) L* 06/07/22 15:05 Potassium 3.1 mmol/L (3.5-5.1) L D 06/07/22 15:05 Chloride 77 mmol/L (98-107) L 06/07/22 15:05 Carbon Dioxide 28 mmol/L (21-32) 06/07/22 15:05 Anion Gap 9 (3-11) 06/07/22 15:05 BUN 10 mg/dl (6-23) 06/07/22 15:05 Creatinine 0.93 mg/dl (0.6-1.2) 06/07/22 15:05 Est Cr Clr Drug Dosing 76.4 ml/min 06/07/22 15:05 Est GFR ( Amer) 78.0 ml/min 06/07/22 15:05 Est GFR (Non-Af Amer) 67.3 ml/min 06/07/22 15:05 BUN/Creatinine Ratio 10.8 (10-20) 06/07/22 15:05 Glucose 113 mg/dl (70-99(Fasting)) H 06/07/22 15:05 Calcium 8.8 mg/dl (8.5-10.1) 06/07/22 15:05 Magnesium 1.8 mg/dl (1.7-2.4) 06/07/22 15:05 Total Bilirubin 1.4 mg/dl (0.2-1.0) H 06/07/22 15:05 AST 37 U/L (13-39) 06/07/22 15:05 ALT 24 U/L (7-52) 06/07/22 15:05 Alkaline Phosphatase 60 U/L (34-104) 06/07/22 15:05 Total Protein 7.0 gm/dl (6.0-8.3) 06/07/22 15:05 Albumin 4.0 gm/dl (3.4-5.0) 06/07/22 15:05 Globulin 3.0 gm/dl (2.5-4.0) 06/07/22 15:05 Albumin/Globulin Ratio 1.3 (0.9-2) 06/07/22 15:05 Lipase 28 U/L (11-82) 06/07/22 15:05 SARS-CoV-2, RNA, NAAT NEGATIVE (NEGATIVE) 06/07/22 16:23 PG Care Time/CCT Total # of Minutes Spent Total Time Spent with Patient: Total time spent is greater than 50% in coordination of care (as documented) at patient's floor/unit and/or counseling patient: Coding Level of Care Code 32633 Initial Inpt Care Lvl 3 Diagnoses Hyponatremia E87.1 Gastritis K29.70 HTN (hypertension) I10 Hypothyroid E03.9
[2022-06-07] MEDS ORDERED: ONDANSETRON INJ 2 MG/ML 2 ML VIAL IV PRN (19:11)
[2022-06-07] MEDS ORDERED: ACETAMINOPHEN 325 MG TAB PO PRN (19:11)
[2022-06-07] MEDS ORDERED: ALUMINUM/MAGNESIUM SUSP 30 ML UDC PO PRN (19:11)
[2022-06-07] MEDS: SODIUM CHLORIDE 0.9% 1000ML 1,000 ML IV SCH (19:49)
[2022-06-07 23:06] LABS: BUN Creatinine Ratio 9.4 (10-20); Calcium 7.9 mg/dl (8.5-10.1); Creatinine Clr Calc Pharmacy 83.2 ml/min; Est GFR (African American) 86.9 ml/min
[2022-06-08] MEDS: SODIUM CHLORIDE 0.9% 1000ML 1,000 ML IV SCH ×2 (04:53→15:15)
[2022-06-08] MEDS: LEVOTHYROXINE SODIUM 137 MCG TABLET PO SCH (05:32)
[2022-06-08 08:20] LABS: BUN Creatinine Ratio 9.5 (10-20); Calcium 8.5 mg/dl (8.5-10.1); Creatinine Clr Calc Pharmacy 84.2 ml/min; Est GFR (African American) 88.2 ml/min; Est GFR (Non-African American) 76.1 ml/min; Potassium 4.1 mmol/L (3.5-5.1)
[2022-06-08] MEDS: PANTOprazole 40 MG TAB PO SCH (08:24)
--- NOTE | 2022-06-08 13:18 | Hospitalist Progress Note ---
Date of Service June 08, 2022 Assessment & Plan (1) Hyponatremia: Plan: Most likely due to poor oral intake and effect of diuretics Serum sodium 130 today, up from 116 Continue to Hold olmesartan and hydrochlorothiazide for now Recheck BMP tomorrow (2) Gastritis: Plan: Continue oral pantoprazole start bland diet, can advance as tolerated As needed Zofran (3) HTN (hypertension): Plan: Monitor off medications for now, BP currently 117/78mmhg (4) Hypothyroid: Plan: continue levothyroxine Plan likely d/c in the next 24 hrs Admission and Anticipated Discharge Date Admission Date: June 07, 2022 Subjective patient seen and seen today, no new complaints Review of Systems Review of Systems: All systems reviewed are negative, apart from the ones contained in the history. Physical Exam Physical Exam: The patient is awake, alert and oriented 3, well developed and well nourished, normocephalic and atraumatic, lying in bed and in no acute distress. HEENT--PERRL, EOMI, mucous membranes and oropharynx mildly dry Neck--supple. No JVD. No bruits. Thyroid normal, trachea midline, no adenopathy. Heart--normal S1 and S2. No murmurs, rubs or gallops. Lungs--clear bilaterally, no respiratory distress, no accessory muscle use. Abdomen--normal bowel sounds and soft. Mild epigastric and left sided abdominal pain Extremities--no cyanosis or clubbing. No edema. Dermatologic--normal skin turgor, normal color, no abnormal lymph nodes, no rash. Neurologic--cranial nerves II through XII grossly intact. Rheumatologic--normal range of motion. Psychiatric--normal affect. Results & Data Results & Data ([facility]) Vital Signs (Past 12 Hours) Vital Signs Temp Pulse Pulse Resp BP Pulse Ox O2 Del Method 06/08/22 10:51 97.3 F L 59 L 19 117/78 98 Room Air 06/08/22 07:43 98.1 F 68 17 114/76 100 Room Air 06/08/22 03:11 98.1 F 63 17 105/69 97 Room Air 06/08/22 02:16 54 L PG Care Time/CCT Total # of Minutes Spent Total Time Spent with Patient: Total time spent is greater than 50% in coordination of care (as documented) at patient's floor/unit and/or counseling patient: Coding Level of Care Code 32102 Subseq Hosp Care Lvl 2 Diagnoses Hyponatremia E87.1 Gastritis K29.70 HTN (hypertension) I10 Hypothyroid E03.9 Time Spent (min) 35
[2022-06-09] MEDS: LEVOTHYROXINE SODIUM 137 MCG TABLET PO SCH (06:08)
[2022-06-09 07:53] LABS: Calcium 8.6 mg/dl (8.5-10.1); Est GFR (Non-African American) 67.3 ml/min
[2022-06-09] MEDS: PANTOprazole 40 MG TAB PO SCH (08:07)
--- NOTE | 2022-06-09 12:42 | Discharge Summary ---
Date of Service June 09, 2022 Admission HPI Per Admitting Provider This is a 61-year-old female with past medical history of hypertension that presents today after being found to have abnormal labs. Patient is with her and both are good historians. Patient tells me that she started with some abdominal pain and dyspepsia late last week. She had diminished p.o. intake secondary to discomfort. She went to see her primary care physician and was given famotidine after being told she had gastritis. Patient continue to drink fluids but had very little solid p.o. intake. She continue taking her usual medications which included hydrochlorothiazide and olmesartan. Symptoms did not resolve and she returned to her physician today. At this point she was given pantoprazole and an x-ray was performed which was essentially unremarkable. However, laboratory work showed a sodium of 116. Patient was contacted and told to present to the emergency room. In the ER, labs were repeated and her sodium was 114. Patient was started on normal saline and referred to us for admission. At the time of my evaluation, patient tells me that her appetite has improved and that she feels that she can tolerate solid food again. She denies any neurological symptoms including tremor or confusion. She has had no lightheadedness, dizziness, or difficulty ambulating. Principal Diagnosis symptomatic hyponatremia Discharge Exam The patient is awake, alert and oriented 3, well developed and well nourished, normocephalic and atraumatic, lying in bed and in no acute distress. HEENT--PERRL, EOMI, mucous membranes and oropharynx mildly dry Neck--supple. No JVD. No bruits. Thyroid normal, trachea midline, no adenopathy. Heart--normal S1 and S2. No murmurs, rubs or gallops. Lungs--clear bilaterally, no respiratory distress, no accessory muscle use. Abdomen--normal bowel sounds and soft. Mild epigastric and left sided abdominal pain Extremities--no cyanosis or clubbing. No edema. Dermatologic--normal skin turgor, normal color, no abnormal lymph nodes, no rash. Neurologic--cranial nerves II through XII grossly intact. Rheumatologic--normal range of motion. Psychiatric--normal affect. Discharge Data Allergies Allergy/AdvReac Type Severity Reaction Status Date / Time No Known Allergies Allergy Mild Unverified 08/09/19 13:52 Consultations 06/07/22 16:01 ED Decision to Admit Stat Hospital Course (1) Hyponatremia: Sypmtomatic hyponatrmia, Most likely due to poor oral intake and effect of diuretics Serum sodium 134 today, up from 116 Continue to Hold olmesartan and hydrochlorothiazide for now Recheck BMP tomorrow (2) Gastritis: Continue oral pantoprazole start bland diet, can advance as tolerated As needed Zofran (3) HTN (hypertension): Monitor off medications for now, BP currently 117/78mmhg (4) Hypothyroid: continue levothyroxine Plan likely d/c in the next 24 hrs Total Time Total Time Spent Total Time Spent (In Minutes): 35 Discharge Plan Discharge Items Patient Disposition: Home - Self-Care Reason For Visit: HYPONATREMIA Discharge Diagnosis: hyponatremia Activity: Resume your previous activity Non-emergency contact: Primary Care Provider Call non-emergency contact if: you have any medication questions Follow-up/Referrals: Daiana Palomo CRNP [Primary Care Provider] - Diet: Regular Addtl Attending Provider Instructions: please make appointment to follow up with your PCP as soon as possible Pending Studies at Discharge: No Stand-Alone Forms: My [place] [employer], Smoking Cessation Medications and DC Order Prescriptions: Continued levothyroxine 137 mcg Tablet 137 mcg PO DAILY 90 Days Qty: 90 lisinopril 40 mg Tablet 40 mg PO DAILY Qty: 0 loratadine 10 mg Tablet 10 mg PO DAILY PRN (Reason: Allergic Symptoms) Qty: 0 ranitidine HCl [Zantac] 150 mg Tablet 150 mg PO DAILY hydrochlorothiazide 25 mg tablet 25 mg PO DAILY Discharge Orders: Discharge Order (Routine); Ordered 06/09/22 Ordered By: Oma Thomas Admission Data Admit Date/Time: 06/07/22 17:40 Attending Provider: Oma Thomas Admit Provider: Austin Lai Primary Care Provider: Daiana Palomo Other Providers: Austin Lai Other Interventions: Discharge Summary Assessment (RN) Last Done: 06/09/22 11:47 Coding Level of Care Code D/C DAY MANAGEMENT >30 MINS Diagnoses Hyponatremia E87.1 Gastritis K29.70 HTN (hypertension) I10 Hypothyroid E03.9 Time Spent (min) 35
== END 2022-06-09 12:53 | disposition home or self-care (01) | DRG 641 ==
LOC: ED 14:12 → SUATTDRO 17:40 → 2S 17:40

== ENCOUNTER 2022-06-15 07:53 | Observation (INO) ==
[2022-06-15] MEDS ORDERED: ONDANSETRON INJ 2 MG/ML 2 ML VIAL IV STA (08:53)
[2022-06-15] MEDS ORDERED: SODIUM CHLORIDE 0.9% 1000ML 1,000 ML IV STA (08:53)
[2022-06-15 09:34] LABS: Basophils # (auto) 0.02 K/uL (0-0.2); Basophils % (auto) 0.4 %; Eosinophils # (auto) 0.01 K/uL (0-0.50); Eosinophils % (auto) 0.2 %; Hematocrit (blood only) 37.5 % (34.1-44.9); Hemoglobin 12.9 g/dl (12.0-16.0); Immature Granulocytes # (auto) 0.02 K/uL (0.00-0.02); Immature Granulocytes % (auto) 0.4 %; Lymphocytes # (auto) 0.45 K/uL (1.2-3.4); Lymphocytes % (auto) 9.4 %; Mean Corpuscular Hemoglobin 28.7 pg (25.0-34.0); Mean Corpuscular Hgb Conc 34.4 g/dL (32.0-36.0); Mean Corpuscular Volume 83.3 fL (80.0-100.0); Monocytes # (auto) 0.44 K/uL (0.24-0.82); Monocytes % (auto) 9.2 %; Neutrophils # (auto) 3.83 K/uL (1.4-6.5); Neutrophils % (auto) 80.4 %; Platelet Count 213 K/uL (130-400); RDW Coefficient of Variation 12.6 % (11.5-14.5); RDW Standard Deviation 38.2 fL (36.4-46.3); White Blood Count 4.77 K/ul (4.8-10.8)
[2022-06-15 09:53] LABS: Troponin I High Sensitivity 4.4 pg/ml (0-14)
[2022-06-15 09:56] LABS: Albumin Globulin Ratio 1.3 (0.9-2); Albumin Level 4.1 gm/dl (3.4-5.0); BUN Creatinine Ratio 12.5 (10-20); Bilirubin,Total 1.1 mg/dl (0.2-1.0); Calcium 8.9 mg/dl (8.5-10.1); Creatinine Clr Calc Pharmacy 79.3 ml/min; Est GFR (African American) 83.4 ml/min; Est GFR (Non-African American) 71.9 ml/min; Globulin 3.1 gm/dl (2.5-4.0); Magnesium 1.7 mg/dl (1.7-2.4); Phosphorus 3.5 mg/dl (2.5-4.9); Potassium 3.2 mmol/L (3.5-5.1); Total Protein 7.2 gm/dl (6.0-8.3)
[2022-06-15] MEDS ORDERED: GI COCKTAIL ED USE PO ONE (10:25)
[2022-06-15] MEDS ORDERED: POTASSIUM CHLORIDE / WTR 10 MEQ/100 ML PLCT IV ONE (10:25)
--- NOTE | 2022-06-15 10:42 | History & Physical Report ---
Date of Service June 15, 2022 Assessment & Plan (1) Gastritis: Plan: Ongoing despite pantoprazole use, will increase to BID dosing. Will consult gastroenterology for consideration of EGD during this admission given ongoing symptoms despite pantoprazole use. H. pylori stool antigen previously negative - no need to repeat this. Consider CT if nothing seen on endoscopy however given only 1 day of diarrhea and only intermittent epigastric pain will defer on admission. (2) Diarrhea: Plan: Stool PCR ordered. (3) Hyponatremia: Plan: Suspect contributory towards nausea and vomiting. Currently appears euvolemic - although in setting of diarrhea and vomiting would be consistent with mild hypovolemia. Secondary to hydrochlorothiazide use. This was restarted on previous admission - suspect should be discontinued indefinitely. NSS 1L bolus given in ER. Continue NSS @ 80ml/hr. (4) HTN (hypertension): Plan: Hold olmesartan and hydrochlorothiazide (5) Hypothyroid: Plan: TSH pending on admission Levothyroxine 137 mcg p.o. daily (6) Psoriasis: Plan: Fluocinonide ointment as needed Plan VTE prophylaxis - low risk, chemical prophylaxis deferred Diet - clear liquids, advance as tolerated Disposition - admit to [facility] Admission and Anticipated Discharge Date Admission Date: June 15, 2022 History of Present Illness Chief Complaint: Diarrhea, abdominal pain, nausea and vomiting Primary Care Provider: MARLA Feldman Gloria Benson is a 61-year-old female who presents to the ER with nausea, vomiting, diarrhea. She was recently hospitalized from June 07 to 2021 due to gastritis with hyponatremia in the setting of olmesartan and hyd rochlorothiazide use. Sodium level improved from 114-134 with normal saline however it appears she was restarted on olmesartan and hydrochlorothiazide on discharge. She was feeling well on discharge without any diarrhea, nausea, vomiting and was tolerating a normal diet. However she continued to have intermittent epigastric pain despite being started on pantoprazole. H. pylori antigen stool testing was negative. She started having diarrhea again yesterday and vomited once. She currently feels nauseous. She denies any NSAID use. Last colonoscopy was 6 years ago during routine screening which she reports was normal. She has never had an EGD. In the ER she was noted to be hyponatremic again with sodium level 125 mmol/L from 134. She is mildly hypokalemic with potassium level 3.2 mmol/L. Due to level of hyponatremia Allergies Allergy/AdvReac Type Severity Reaction Status Date / Time No Known Allergies Allergy Mild Unverified 06/15/22 10:55 Home Medications Medication Instructions Recorded Confirmed Type levothyroxine 137 mcg tablet 137 mcg PO DAILY 90 days #90 tabs 05/06/16 06/15/22 History hydrochlorothiazide 25 mg tablet 25 mg PO DAILY 08/09/19 06/15/22 History fluocinonide 0.05 % topical 1 applic topical BID PRN Psoriasis 06/15/22 06/15/22 History ointment olmesartan 40 mg tablet 40 mg PO DAILY 06/15/22 06/15/22 History pantoprazole 40 mg tablet,delayed 40 mg PO DAILY 06/15/22 06/15/22 History release Past Med/Surg History Medical History (Updated 06/15/22 @ 11:15 by Samuel Salazar MD) HTN (hypertension) Hypothyroid Psoriasis Surgical History No pertinent past surgical history Family History Grandfather Myocardial infarction Other No pertinent family history Social History Smoking Status: Never smoker Years Smoked: 3; Number of Years Since Quit: 35; Hx Alcohol Use: Yes Hx Substance Use: No Preferred Language: Filipino Communication Ability: Effective 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 Beliefs That Will Affect Care: Samaritan Samaritan Beliefs: Jehovah Witness Current Living Situation: Family Feels Safe at Home: Yes Assistive Devices: None Review of Systems Review of Systems: All systems reviewed & are unremarkable except as noted in HPI & below Physical Exam Constitutional: WD/WN, vitals as above Eyes: + anicteric sclerae; normal pupil size ENMT: external ear and nose normal, oropharynx normal Neck: trachea midline, no thyromegaly Respiratory: normal respiratory effort, lungs clear to auscultation Cardiovascular: RRR, no murmur, no edema Gastrointestinal (Abdomen): Inspection/Auscultation: normal bowel sounds Percussion/Palpation: + abdomen tender (mild epigastric) and abdomen soft; no guarding and abdomen not rigid Musculoskeletal: no cyanosis or clubbing, extremities motor strength 5/5 Skin: + rash (skin thickening and erythema consistent with partially treated psoriasis on) Neurologic: moves all extremities and awake; not confused Psychiatric: A+Ox3, euthymic affect Results & Data Results & Data ([facility]) Vital Signs (Past 12 Hours) Vital Signs Temp Pulse Pulse Resp BP BP Pulse Ox 06/15/22 09:52 60 18 98 06/15/22 09:52 61 18 106/76 98 06/15/22 08:03 36.7 C 81 18 128/92 96 O2 Del Method 06/15/22 09:52 Room Air 06/15/22 09:52 Room Air 06/15/22 08:03 Room Air Laboratory Results Abnormal lab results 06/15/22 06/15/22 Range/Units 08:45 08:45 WBC 4.77 L (4.8-10.8) K/ul Lymph # (Auto) 0.45 L (1.2-3.4) K/uL Sodium 125 L (136-145) mmol/L Potassium 3.2 L (3.5-5.1) mmol/L Chloride 90 L (98-107) mmol/L Glucose 130 H (70-99(Fasting)) mg/dl Total Bilirubin 1.1 H (0.2-1.0) mg/dl Medications Administered ER medications given: KCl 10 M EQ IV x1 NSS 1L bolus Ondansetron 4 mg IV GI cocktail ECG Indication: toxicologic (Hyponatremia) Rate (beats per minute): 60 Rhythm: normal sinus Findings: + other (T wave flattening in lateral leads) Comparison ECG Date: from (August 09, 2019) Change: the following changes noted (T wave changes above are new) Code Status & VTE Plan Code Status Full VTE Prophylaxis Plan VTE Prophylaxis will be ordered: No PG Care Time/CCT Total # of Minutes Spent Total Time Spent with Patient: Total time spent is greater than 50% in coordination of care (as documented) at patient's floor/unit and/or counseling patient: Coding Level of Care Code 29484 Initial Inpt Care Lvl 2 Diagnoses Gastritis K29.70 Diarrhea R19.7 Hyponatremia E87.1 HTN (hypertension) I10 Hypothyroid E03.9 Psoriasis L40.9
[2022-06-15 11:08] LABS: Appearance Urine Clear (Clear); Bacteria Urine Automated Negative (Negative); Bilirubin Urine Negative (Negative); Blood Urine 2+ (Negative); Cast Urine Automated 0 /lpf (0-5); Color Urine Yellow; Epithelial Cell Urine Auto >30 /lpf (0-5); Glucose Urine UA Negative (Negative); Ketones Urine Negative (Negative); Leukocyte Esterase Urine Negative (Negative); Nitrite Urine Negative (Negative); Protein Urine Negative (Negative); Specific Gravity Urine 1.009 (1.000-1.030); Urobilinogen Urine Negative (Negative); pH Urine 6.5 (4.5-7.5)
[2022-06-15] MEDS ORDERED: FLUOCINONIDE 0.05% OINT 15 GM TUBE EXT PRN (13:16)
[2022-06-15] MEDS ORDERED: ONDANSETRON INJ 2 MG/ML 2 ML VIAL IV PRN (13:16)
[2022-06-15] MEDS ORDERED: ALUMINUM/MAGNESIUM SUSP 30 ML UDC PO PRN (13:16)
[2022-06-15] MEDS ORDERED: ACETAMINOPHEN 325 MG TAB PO PRN (13:16)
[2022-06-15 13:30] LABS: Adenovirus F 40/41 PCR Not Detected (NotDetected); Astrovirus PCR Not Detected (NotDetected); Campylobacter PCR Not Detected (NotDetected); Clostridium diff Toxin A/B PCR Not Detected (NotDetected); Cryptosporidium PCR Not Detected (NotDetected); Cyclospora cayetanensis PCR Not Detected (NotDetected); Entamoeba histolytica PCR Not Detected (NotDetected); Enteroaggregative E.coli(EAEC) Not Detected (NotDetected); Enteropathogenic E.coli (EPEC) Not Detected (NotDetected); Enterotoxigenic E.coli (ETEC) Not Detected (NotDetected); Giardia lamblia PCR Not Detected (NotDetected); Plesiomonas shigelloides PCR Not Detected (NotDetected); Rotavirus A PCR Not Detected (NotDetected); Salmonella PCR Not Detected (NotDetected); Sapovirus PCR Not Detected (NotDetected); Shiga-like Toxin E.coli (STEC) Not Detected (NotDetected); Shigella/Enteroinvasive E.coli Not Detected (NotDetected); Vibrio cholerae PCR Not Detected (NotDetected); Vibrio species PCR Not Detected (NotDetected); Yersinia enterocolitica PCR Not Detected (NotDetected)
[2022-06-15 13:35] LABS: Norovirus GI/GII PCR DETECTED (NotDetected)
[2022-06-15] MEDS: SODIUM CHLORIDE 0.9% 1000ML 1,000 ML IV SCH (13:47)
[2022-06-15] MEDS: MAGNESIUM SULFATE / D5W 1 GM/100 ML BAG IV SCH ×2 (14:18→16:07)
--- NOTE | 2022-06-15 15:42 | Emergency Department Note ---
History of Present Illness General Chief complaint: Diarrhea Stated complaint: DIARRHEA Time Seen by Provider: 06/15/22 08:28 History of Present Illness 61-year-old female who presents to the emergency department with complaint of ongoing diarrhea, hollow feeling in her stomach and nausea. The patient had an episode of vomiting yesterday. The patient reports that she has a decent appetite. She has not noticed any blood in her stool. The patient reports that she was recently admitted to our facility with hyponatremia. The patient is currently taking pantoprazole twice daily as recommended for gastritis. She denies prior evaluation by gastroenterology. The patient denies any significant abdominal discomfort. Home Medications Medication Instructions Recorded Confirmed Type levothyroxine 137 mcg tablet 137 mcg PO DAILY 90 days #90 tabs 05/06/16 06/15/22 History hydrochlorothiazide 25 mg tablet 25 mg PO DAILY 08/09/19 06/15/22 History fluocinonide 0.05 % topical 1 applic topical BID PRN Psoriasis 06/15/22 06/15/22 History ointment olmesartan 40 mg tablet 40 mg PO DAILY 06/15/22 06/15/22 History pantoprazole 40 mg tablet,delayed 40 mg PO DAILY 06/15/22 06/15/22 History release Allergies Allergy/AdvReac Type Severity Reaction Status Date / Time No Known Allergies Allergy Mild Unverified 06/15/22 10:55 Past Med/Surg History Medical History HTN (hypertension) Hypothyroid Psoriasis Surgical History No pertinent past surgical history Family History Grandfather Myocardial infarction Other No pertinent family history Social History Smoking Status: Former smoker Years Smoked: 3; Number of Years Since Quit: 35; Hx Alcohol Use: Yes Alcohol type: beer and wine Hx Substance Use: No Preferred Language: Nepali Communication Ability: Effective Drawing Tracer Required: No Beliefs That Will Affect Care: None Current Living Situation: Spouse Other Information That Helps Us Care for You: No Feels Safe at Home: Yes Safety Concerns: Feels Safe At This Time Assistive Devices: Glasses Review of Systems 10 system review was performed and was negative except for pertinent positives and negatives as indicated in history of present illness Physical Exam Vital Signs Vital Signs - 24 hr 06/15/22 08:03 06/15/22 09:52 06/15/22 09:52 Temperature 36.7 C Temperature Source Oral Pulse Rate 81 60 Pulse Rate [Apical] 61 Respiratory Rate 18 18 18 Respiratory Effort / Characteristics Non-Labored Respiratory Depth Normal Blood Pressure 128/92 Blood Pressure [Right Arm] 106/76 Blood Pressure Mean 104 Blood Pressure Mean [Right Arm] 86 Pulse Oximetry 96 98 98 Oxygen Delivery Method Room Air Room Air Room Air Sepsis Recent Fever Within 48 Hours No Sepsis New/Unexplained Change in Mental Status No Sepsis Action Taken by Nursing No Action Required CONSTITUTIONAL: Healthy and well nourished. Patient does not appear acutely ill or toxic. HEENT: No scleral icterus or conjunctival injection/pallor. Mucous membranes are dry. No posterior pharyngeal erythema. NECK: Full active range of motion without discomfort. LYMPHATICS: No cervical chain adenopathy. RESPIRATORY: Clear to auscultation bilaterally with no wheezing, crackles, rhonchi or stridor. CARDIOVASCULAR: Regular rate and rhythm with no murmurs, rubs or gallops. GASTROINTESTINAL: Bowel sounds present in all quadrants. Patient has minimal and generalized abdominal tenderness to palpation without rigidity, guarding or rebound. MUSCULOSKELETAL: Full range of motion of all joints without discomfort. INTEGUMENTARY: No rash or other significant dermatologic conditions noted. HEMATOLOGIC: No ecchymosis or petechiae. PSYCHIATRIC: Positive affect. NEUROLOGIC: No focal neurologic deficits noted. Course Course Cardiac monitoring: An order was placed for continuous cardiac monitoring. The monitor shows a rate of 60 bpm with a normal sinus rhythm. forensic examiner hi story was reviewed throughout the evaluation, and no dysrhythmias were noted. Patient history and physical exam were performed. Nurses notes were reviewed. Vital signs were reviewed and were also normal. Prior medical records were also reviewed, including the patient's last admission for hyponatremia, which was corrected prior to discharge. IV access was established, and labs were drawn. The patient was hydrated with a liter of normal saline. She was also administered a GI cocktail and IV Zofran. Review of labs shows a relatively normal CBC. CMP shows a sodium of 125, potassium of 3.2 and elevated glucose of 130. Magnesium and phosphorus were normal. LFTs and lipase were normal. Urinalysis shows 2+ hematuria without evidence for infection. An ECG was performed and was grossly normal. The patient was ordered a K-rider given her nausea. Findings were discussed with Dr. Severino, ED attending physician, as well as the patient. Given her sodium level, but I did recommend admission. COVID-19 test was repeated and was normal. The case was then further discussed with the [facility] hospitalist for further reevaluation and management. Please see their dictation for further treatment and final disposition. Administered Medications Sodium Chloride (Nss 1000ml) 1,000 mls @ 80 mls/hr IV .[id number] JOSE Stop: 07/15/22 13:15 Last Admin: 06/15/22 13:47 Dose: 80 mls/hr Documented By: DONNA Magnesium Sulfate/Dextrose (Magnesium Sulfate / D5w) 1 gm in 100 mls @ 50 mls/hr IV Q2H JOSE Stop: 06/15/22 17:15 Last Admin: 06/15/22 14:18 Dose: 50 mls/hr Documented By: DONNA Discontinued Medications Al Hydrox/Mg Hydrox/Simethicone (Gi Cocktail Ed Use) 1 dose PO ONE ONE Stop: 06/15/22 10:26 Last Admin: 06/15/22 11:22 Dose: 1 dose Documented By: DIPIKA Sodium Chloride (Nss 1000ml) 1,000 mls @ 999 mls/hr IV .Q1H1M STA Stop: 06/15/22 09:53 Last Infusion: 06/15/22 11:08 Dose: 0 mls/hr Documented By: Admin: 06/15/22 09:37 Dose: 999 mls/hr Documented By: DIPIKA Potassium Chloride (K Dioni / Wtr) 10 meq in 100 mls @ 100 mls/hr IV ONE ONE; Protocol Stop: 06/15/22 11:24 Last Infusion: 06/15/22 12:26 Dose: 0 mls/hr Documented By: Admin: 06/15/22 11:22 Dose: 100 mls/hr Documented By: DIPIKA Ondansetron HCl (Ondansetron Inj 2 Mg/Ml 2 Ml Vial) 4 mg IV NOW STA Stop: 06/15/22 08:54 Last Admin: 06/15/22 09:37 Dose: 4 mg Documented By: DIPIKA Medical Decision Making Medical Records Attestation: I reviewed the patient's medical records. Home Medications Current Medication List: was personally reviewed by me Laboratory Data Attestation: I reviewed the patient's lab results. Result diagrams: 06/15/22 08:45 06/15/22 08:45 Lab Results 06/15/22 06/15/22 06/15/22 Range/Units 08:45 08:45 08:45 WBC 4.77 L (4.8-10.8) K/ul RBC 4.50 (3.93-5.22) M/uL Hgb 12.9 (12.0-16.0) g/dl Hct 37.5 (34.1-44.9) % MCV 83.3 (80.0-100.0) fL MCH 28.7 (25.0-34.0) pg MCHC 34.4 (32.0-36.0) g/dL RDW Std Deviation 38.2 (36.4-46.3) fL RDW Coeff of Mervin 12.6 (11.5-14.5) % Plt Count 213 (130-400) K/uL MPV 10.0 (9.4-12.3) fL Immature Gran % (Auto) 0.4 % Neut % (Auto) 80.4 % Lymph % (Auto) 9.4 % [place] % (Auto) 9.2 % Eos % (Auto) 0.2 % Baso % (Auto) 0.4 % Neut # (Auto) 3.83 (1.4-6.5) K/uL Lymph # (Auto) 0.45 L (1.2-3.4) K/uL [place] # (Auto) 0.44 (0.24-0.82) K/uL Eos # (Auto) 0.01 (0-0.50) K/uL Baso # (Auto) 0.02 (0-0.2) K/uL Immature Gran # (Auto) 0.02 (0.00-0.02) K/uL Sodium 125 L (136-145) mmol/L Potassium 3.2 L (3.5-5.1) mmol/L Chloride 90 L (98-107) mmol/L Carbon Dioxide 26 (21-32) mmol/L Anion Gap 9 (3-11) BUN 11 (6-23) mg/dl Creatinine 0.88 (0.6-1.2) mg/dl Est Cr Clr Drug Dosing 79.3 ml/min Est GFR ( Amer) 83.4 ml/min Est GFR (Non-Af Amer) 71.9 ml/min BUN/Creatinine Ratio 12.5 (10-20) Glucose 130 H (70-99(Fasting)) mg/dl Calcium 8.9 (8.5-10.1) mg/dl Phosphorus 3.5 (2.5-4.9) mg/dl Magnesium 1.7 (1.7-2.4) mg/dl Total Bilirubin 1.1 H (0.2-1.0) mg/dl AST 17 (13-39) U/L ALT 20 (7-52) U/L Alkaline Phosphatase 61 (34-104) U/L Troponin I High Sens 4.4 (0-14) pg/ml Total Protein 7.2 (6.0-8.3) gm/dl Albumin 4.1 (3.4-5.0) gm/dl Globulin 3.1 (2.5-4.0) gm/dl Albumin/Globulin Ratio 1.3 (0.9-2) Lipase 20 (11-82) U/L TSH 1.864 (0.300-4.500) uIu/ml Urine Color Urine Appearance (Clear) Urine pH (4.5-7.5) Ur Specific [place] (1.000-1.030) Urine Protein (Negative) Urine Glucose (UA) (Negative) Urine Ketones (Negative) Urine Blood (Negative) Urine Nitrite (Negative) Urine Bilirubin (Negative) Urine Urobilinogen (Negative) Ur Leukocyte Esterase (Negative) Urine WBC (Auto) (0-5) /hpf Urine RBC (Auto) (0-4) /hpf U Hyaline Cast (Auto) (0-5) /lpf U Epithel Cells (Auto) (0-5) /lpf Urine Bacteria (Auto) (Negative) 06/15/22 Range/Units 09:47 WBC (4.8-10.8) K/ul RBC (3.93-5.22) M/uL Hgb (12.0-16.0) g/dl Hct (34.1-44.9) % MCV (80.0-100.0) fL MCH (25.0-34.0) pg MCHC (32.0-36.0) g/dL RDW Std Deviation (36.4-46.3) fL RDW Coeff of Mervin (11.5-14.5) % Plt Count (130-400) K/uL MPV (9.4-12.3) fL Immature Gran % (Auto) % Neut % (Auto) % Lymph % (Auto) % [place] % (Auto) % Eos % (Auto) % Baso % (Auto) % Neut # (Auto) (1.4-6.5) K/uL Lymph # (Auto) (1.2-3.4) K/uL [place] # (Auto) (0.24-0.82) K/uL Eos # (Auto) (0-0.50) K/uL Baso # (Auto) (0-0.2) K/uL Immature Gran # (Auto) (0.00-0.02) K/uL Sodium (136-145) mmol/L Potassium (3.5-5.1) mmol/L Chloride (98-107) mmol/L Carbon Dioxide (21-32) mmol/L Anion Gap (3-11) BUN (6-23) mg/dl Creatinine (0.6-1.2) mg/dl Est Cr Clr Drug Dosing ml/min Est GFR ( Amer) ml/min Est GFR (Non-Af Amer) ml/min BUN/Creatinine Ratio (10-20) Glucose (70-99(Fasting)) mg/dl Calcium (8.5-10.1) mg/dl Phosphorus (2.5-4.9) mg/dl Magnesium (1.7-2.4) mg/dl Total Bilirubin (0.2-1.0) mg/dl AST (13-39) U/L ALT (7-52) U/L Alkaline Phosphatase (34-104) U/L Troponin I High Sens (0-14) pg/ml Total Protein (6.0-8.3) gm/dl Albumin (3.4-5.0) gm/dl Globulin (2.5-4.0) gm/dl Albumin/Globulin Ratio (0.9-2) Lipase (11-82) U/L TSH (0.300-4.500) uIu/ml Urine Color Yellow Urine Appearance Clear (Clear) Urine pH 6.5 (4.5-7.5) Ur Specific [place] 1.009 (1.000-1.030) Urine Protein Negative (Negative) Urine Glucose (UA) Negative (Negative) Urine Ketones Negative (Negative) Urine Blood 2+ H (Negative) Urine Nitrite Negative (Negative) Urine Bilirubin Negative (Negative) Urine Urobilinogen Negative (Negative) Ur Leukocyte Esterase Negative (Negative) Urine WBC (Auto) 1-5 (0-5) /hpf Urine RBC (Auto) 5-10 H (0-4) /hpf U Hyaline Cast (Auto) 0 (0-5) /lpf U Epithel Cells (Auto) >30 H (0-5) /lpf Urine Bacteria (Auto) Negative (Negative) ECG Data Attestation: I personally reviewed and interpreted this ECG as follows: Indication: + abdominal pain, + nausea, + vomiting, + weakness and + other (Diarrhea, electrolyte imbalance) Rate (beats per minute): 60 Rhythm: + normal sinus ECG Intervals/blocks: + Normal QRS, + Normal QT and + Normal SC ECG [place]: + Normal ECG ST segments: + Normal ST segments Comparison ECG Date: from (08/09/2019) Change: no significant change Blood Pressure Blood Pressure Findings: Normal blood pressure MDM Narrative Patient presents to the emergency department with complaint of persistent abdominal pain, nausea. The patient was recently admitted for gastritis, nausea and vomiting. She was found to be severely hyponatremic and hypokalemia. She was corrected with inpatient management. She now presents to the emergency department with diarrhea, nausea, vomiting and mild abdominal pain. The patient is hyponatremic again today, as well as mildly hypokalemic. Given her sodium level, I do feel that further admission and repletion is warranted. The patient will likely require GI consultation for possible endoscopy. The hospitalist did order stool studies which came back positive for norovirus. Impression & Plan Acute hyponatremia, Nausea and vomiting, Acute hypokalemia, Infection due to Norovirus species Discharge Plan Visit Data Chief Complaint: Diarrhea Stated Complaint: DIARRHEA ED Provider: Kevin Severino ED Midlevel Provider: Jim Hernandez Discharge Problem: Acute hyponatremia, Nausea and vomiting, Acute hypokalemia, Infection due to Norovirus species Patient Disposition: Admitted As Inpatient Discharge Instructions Interventions: ED Discharge Assessment Last Done: 06/15/22 12:55
[2022-06-15] MEDS ORDERED: POTASSIUM CHLORIDE CRTAB 20 MEQ TABCR PO STA (17:03)
[2022-06-15] MEDS: PANTOprazole 40 MG TAB PO SCH (20:35)
[2022-06-16] MEDS: SODIUM CHLORIDE 0.9% 1000ML 1,000 ML IV SCH (02:10)
--- NOTE | 2022-06-16 05:41 | Electrocardiogram Report ---
Test Reason : Blood Pressure : / mmHG Vent. Rate : 060 BPM Atrial Rate : 060 BPM P-R Int : 164 ms QRS Dur : 086 ms QT Int : 404 ms P-R-T Axes : 037 022 009 degrees QTc Int : 404 ms Normal sinus rhythm When compared with ECG of 09-AUG-2019 13:19, No significant change Confirmed by Thien Zavaleta ([id number]) on 06/16/2022 5:41:33 AM Referred By: REFERRED SELF Confirmed By:Thien Zavaleta
[2022-06-16] MEDS ORDERED: LEVOTHYROXINE SODIUM 137 MCG TABLET PO SCH (06:30)
[2022-06-16] MEDS: PANTOprazole 40 MG TAB PO SCH (08:06)
[2022-06-16 08:15] LABS: Bilirubin,Total 0.6 mg/dl (0.2-1.0)
[2022-06-16 08:16] LABS: Albumin Globulin Ratio 1.3 (0.9-2); Albumin Level 3.4 gm/dl (3.4-5.0); BUN Creatinine Ratio 6.3 (10-20); Calcium 8.3 mg/dl (8.5-10.1); Creatinine Clr Calc Pharmacy 73.6 ml/min; Est GFR (Non-African American) 65.6 ml/min; Globulin 2.6 gm/dl (2.5-4.0); Potassium 3.6 mmol/L (3.5-5.1)
--- NOTE | 2022-06-16 08:25 | Hospitalist Progress Note ---
Date of Service June 16, 2022 Assessment & Plan (1) Gastritis: Plan: Nausea/vomiting/diarrhea, norovirus positive Stool PCR positive for norovirus Symptomatic care Given prior medical contact initially consulted, will treat symptomatically and hold on consult at this time CT deferred Sodium, potassium, creatinine normal History of GERD/gastritis, continue PPI Zofran every 4 hours as needed Strict handwashing precautions, note is not skilled by alcohol [place] diet as tolerated Anticipate self-limited course over 48 to 72 hours (2) Diarrhea: Plan: Positive for D[place] as noted (3) Hyponatremia: Plan: Suspect contributory towards nausea and vomiting. Currently appears euvolemic - although in setting of diarrhea and vomiting would be consistent with mild hypovolemia. Secondary to hydrochlorothiazide use. This was restarted on previous admission - suspect should be discontinued indefinitely. NSS 1L bolus given in ER. Continue NSS @ 80ml/hr. (4) HTN (hypertension): Plan: Hold olmesartan and hydrochlorothiazide (5) Hypothyroid: Plan: TSH pending on admission Levothyroxine 137 mcg p.o. daily (6) Psoriasis: Plan: Fluocinonide ointment as needed (7) Norovirus: Plan VTE prophylaxis - low risk, chemical prophylaxis deferred Diet - clear liquids, advance as tolerated Disposition - admit to [facility] Admission and Anticipated Discharge Date Admission Date: June 15, 2022 Results & Data Results & Data ([facility]) Vital Signs (Past 12 Hours) Vital Signs Temp Pulse Resp BP Pulse Ox O2 Del Method 06/16/22 07:24 36.6 C 60 18 118/79 96 Room Air 06/16/22 00:20 36.6 C 54 L 108/71 96 Room Air PG Care Time/CCT Total # of Minutes Spent Total Time Spent with Patient: Total time spent is greater than 50% in coordination of care (as documented) at patient's floor/unit and/or counseling patient: Coding Diagnoses Gastritis K29.70 Diarrhea R19.7 Hyponatremia E87.1 HTN (hypertension) I10 Hypothyroid E03.9 Psoriasis L40.9 Norovirus A08.11
--- NOTE | 2022-06-16 11:22 | Discharge Summary ---
Date of Service June 16, 2022 Admission HPI Per Admitting Provider Gloria Benson is a 61-year-old female who presents to the ER with nausea, vomiting, diarrhea. She was recently hospitalized from June 07 to 2021 due to gastritis with hyponatremia in the setting of olmesartan and hy drochlorothiazide use. Sodium level improved from 114-134 with normal saline however it appears she was restarted on olmesartan and hydrochlorothiazide on discharge. She was feeling well on discharge without any diarrhea, nausea, vomiting and was tolerating a normal diet. However she continued to have intermittent epigastric pain despite being started on pantoprazole. H. pylori antigen stool testing was negative. She started having diarrhea again yesterday and vomited once. She currently feels nauseous. She denies any NSAID use. Last colonoscopy was 6 years ago during routine screening which she reports was normal. She has never had an EGD. In the ER she was noted to be hyponatremic again with sodium level 125 mmol/L from 134. She is mildly hypokalemic with potassium level 3.2 mmol/L. Due to level of hyponatremia Principal Diagnosis Norovirus Discharge Exam General: A&Ox3. NAD. Cooperative. HEENT: Atraumatic, normocephalic. Vision/hearing grossly intact. Pulm: CTAB A&P. -wheezes, -rales, -rhonchi. Symmetrical chest rise. No increased work of breathing. No respiratory distress. Cardiac: RRR, -mrg. Radial pulses intact and symmetrical. Abdominal: Nontender, nondistended, soft. BS present. Discharge Data Allergies Allergy/AdvReac Type Severity Reaction Status Date / Time No Known Allergies Allergy Mild Unverified 06/15/22 10:55 Consultations 06/15/22 10:25 ED Decision to Admit Stat Hospital Course (1) Gastritis: Gloria is a 61-year-old female with a history of gastritis, hypertension, and hypothyroidism who presented with 1 day of nausea/vomiting and 1 to 2 days of liquid diarrhea. She had a family outbreak of norovirus. Following admission she was treated with PPI therapy, stool sample PCR was positive for norovirus. She improved with supportive care. Was hyponatremic to 125, and has had a history of hyponatremia down to the 1 teens on hydrochlorothiazide. This was permanently stopped at in. Her sodium improved to 134 at time of discharge To Do As Outpt: 1. Discontinue hctz due to hyponatremia. BP followup and BMP with sodium recheck by PCP within 1-2 weeks 2. Routine PCP followup N/V/D 2/ Norovirus, self limited - Norovirus positive stool PCR - No gross electrolyte degrangements other than hyponatremia as noted which corrected - symptoms improved by time of discharge - Diet advanced, tolerating well at time of dc - Can continue home PPI -H. pylori stool antigen previously negative - no need to repeat this. Hyponatremia: - Suspect contributory towards nausea and vomiting. - Euvolemic during admission, recieved gentle fluids with diarrhea - dc hctz indefinitely HTN - Continue ARB - hctz discontinued, BP normotensive at dc Hypothyroid: - Levothyroxine 137 mcg p.o. daily - TSH wnl Psoriasis: - Fluocinonide ointment as needed (2) Diarrhea: (3) Hyponatremia: (4) HTN (hypertension): (5) Hypothyroid: (6) Psoriasis: (7) Norovirus: Total Time Total Time Spent Total Time Spent (In Minutes): Time spend day of discharge 45 minutes including direct patient care, documentation, review of labs and images, and coordination of care. Discharge Plan Discharge Items Patient Disposition: Home - Self-Care Reason For Visit: HYPONATREMIA Discharge Diagnosis: Neurovirus, hyponatremia Activity: Resume your previous activity Non-emergency contact: Primary Care Provider Call non-emergency contact if: you have any medication questions, your symptoms worsen, your pain is not controlled and your pain is worsening Follow-up/Referrals: Daiana Palomo CRNP [Primary Care Provider] - Diet: Regular Addtl Attending Provider Instructions: You were seen in the hospital for acute nausea, vomiting, diarrhea and your PCR stool sample was positive for norovirus. This is a self-limited virus which typically causes nausea/vomiting/diarrhea which resolves on its own over an average of 72 hours. No antibiotics are indicated. Your symptoms were greatly improving by time of discharge. You are noted to have low sodium, and have been on hydrochlorothiazide in the past. Your hydrochlorothiazide has been stopped. Please discuss this with your primary care provider at follow-up. Your hydrochlorothiazide 25 mg p.o. daily has been stopped. Please do not take this when you return home, and discuss blood pressure alternatives with your PCP at your follow-up visit. Your blood pressure was normal to low normal during admission. A follow-up appoint is being scheduled for you with your PCP as above. You should receive a call to confirm your appointment within 48 hours, if you do not receive a call please call their office directly at the number above. You should be seen within 2 weeks. If you develop any new or worsening symptoms including fever, chills, sweats, chest pain, chest pressure, difficulty breathing, uncontrolled nausea/vomiting, rash, wheezing, passing out or nearly passing out, bleeding, black/bloody bowel movements, or other new or concerning symptoms please call your primary care physician, or call 911 for re-evaluation in the emergency department if you are very concerned. Pending Studies at Discharge: No Stand-Alone Forms: My [facility], Smoking Cessation Medications and DC Order Prescriptions: Continued levothyroxine 137 mcg Tablet 137 mcg PO DAILY 90 Days Qty: 90 olmesartan 40 mg tablet 40 mg PO DAILY fluocinonide 0.05 % ointment 1 applic TOPICAL BID PRN (Reason: Psoriasis) pantoprazole 40 mg Tablet,Delayed Release (Dr/Ec) 40 mg PO DAILY Discontinued hydrochlorothiazide 25 mg tablet 25 mg PO DAILY Discharge Orders: Discharge Order (Routine); Ordered 06/16/22 Ordered By: Michael Dove Admission Data Admit Date/Time: 06/15/22 10:37 Attending Provider: Michael Dove Admit Provider: Samuel Salazar Primary Care Provider: Daiana Palomo Other Providers: Samuel Salazar Coding Level of Care Code D/C DAY MANAGEMENT >30 MINS Diagnoses Gastritis K29.70 Diarrhea R19.7 Hyponatremia E87.1 HTN (hypertension) I10 Hypothyroid E03.9 Psoriasis L40.9 Norovirus A08.11
== END 2022-06-16 15:19 | disposition home or self-care (01) | DRG 392 ==
LOC: ED 07:53 → SUATTDRO 10:37 → INTOOBSV 10:37 → 3N 10:37
DX: E87.1 Hypo-osmolality and hyponatremia; Y92.019 Unspecified place in single-family (private) house as the place of occurrence of the external cause; I10 Essential (primary) hypertension; Z87.891 Personal history of nicotine dependence; L40.9 Psoriasis, unspecified; A08.11 Acute gastroenteropathy due to Norwalk agent; Z79.890 Hormone replacement therapy; R19.7 Diarrhea, unspecified; T50.2X5A Adverse effect of carbonic-anhydrase inhibitors, benzothiadiazides and other diuretics, initial encounter; K29.70 Gastritis, unspecified, without bleeding; E03.9 Hypothyroidism, unspecified; E87.6 Hypokalemia